=== PATIENT | female | born 1940 | race Caucasian/White ===

== ENCOUNTER → 2016-08-10 | Outpatient (CLI) | payer MEDICARE, BC | LOC: MW.CHORTHO 10:34 | PROVIDERS: ATTEND Physician Assistant | DX: M25.512 Pain in left shoulder (principal); Z53.9 Procedure and treatment not carried out, unspecified reason; M25.511 Pain in right shoulder | CPT/HCPCS: 20610-50; G0463; J3301 ==

== ENCOUNTER 2017-06-14 13:24 | Observation (INO) | payer MEDICARE, BC ==
[2017-06-14] MEDS ORDERED: Azithromycin 250 MG Tab PO ONE (14:39)
[2017-06-14] MEDS ORDERED: Albuterol/Ipratropium 3.0-0.5 MG/3 ML Neb Soln NEB PRN (14:39)
[2017-06-14] MEDS ORDERED: Acetaminophen 325 MG Tab PO PRN (14:39)
[2017-06-14] MEDS ORDERED: Ondansetron 4 MG/2 ML SDV IVPUSH PRN (14:39)
[2017-06-14] MEDS ORDERED: Sodium Chloride 0.9% 1,000 ML IV SCH (14:45)
[2017-06-14] MEDS ORDERED: cefTRIAXone 1 GM in Premix Bag 1 BAG IV SCH (14:45)
--- NOTE | 2017-06-14 14:47 | PCM.HP ---
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 She reports an overall feeling of malaise with some body aches. Green sputum with congested cough, wheezing and dypsnea. She denies chest pain or palpitations. No headaches or sore throat. Some sinus congestion. No abdominal pain or urinary symptoms. She was noted to be sating 88% on RA in the clinic and provider felt she needed to be admitted for observation. From the clinic, labwork essentially WNL, no leukocytosis and BMP WNL Influenza swab negative. No CXR report or images provided so will obtain CXR now. Patient admitted for suspected CAP and mild COPD exacerbation. - Related Data Allergies/Adverse Reactions: Allergies Allergy/AdvReac Type Severity Reaction Status Date / Time propoxyphene HCl Allergy Disorientat Verified 04/06/16 14:25 [From [place]] ion Home Medications: Home Meds DULoxetine [Cymbalta] 1 tab PO DAILY 01/16/14 [History] Pregabalin [Lyrica] 1 tab PO BID 01/16/14 [History] oxyCODONE HCl/Acetaminophen [Percocet 10-325 MG] 1 tab PO Q4HR PRN 01/16/14 [ History] RX: Furosemide [Lasix] 1 tab PO DAILY 04/06/16 [History] RX: Phentermine HCl 1 tab PO DAILY 04/06/16 [History] RX: Propranolol [Inderal LA] 1 tab PO DAILY 04/06/16 [History] Past Medical History HEENT History: Reports: Hard of Hearing Cardiovascular History: Reports: Blood Clots/VTE/DVT (R leg, subsequent compartment syndrome and faciotomy), Hypertension. Denies: CAD, High Cholesterol, OR Respiratory History: Reports: COPD (suspected, has not had PFT yet to be scheduled.) Gastrointestinal History: Reports: None. Denies: GERD, GI Bleed Genitourinary History: Reports: Acute Renal Failure (from dehydration in 2013 and she was transferred to [place].) Neurological History: 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, Neuropathy, Peripheral Psychiatric History: Reports: Depression Endocrine/Metabolic History: Reports: Obesity/BMI 30+. Denies: Diabetes, Type II, Hypothyroidism - Infectious Disease History Infectious Disease History: Reports: Chicken Pox, Measles, Mumps - Past Surgical History Cardiovascular Surgical History: Reports: Other (See Below) Social & Family History - Family History Family Medical History: Noncontributory - Tobacco Use Smoking Status *Q: Former Smoker Years of Tobacco use: 20 Used Tobacco, but Quit: Yes Month Tobacco Last Used: 15 years ago Second Hand Smoke Exposure: No - Caffeine Use Caffeine Use: Reports: Soda - Alcohol Use Days Per Week of Alcohol Use: 0 - Recreational Drug Use Recreational Drug Use: No - Living Situation & Occupation Living situation: Reports: 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 Denies: Fever, Chills HEENT: Reports: Sinus Congestion. Denies: Headaches, Sore Throat, Vertigo, Visual Changes Pulmonary: Reports: Shortness of Breath, Wheezing, Cough, Sputum. Denies: Hemoptysis Cardiovascular: Denies: Chest Pain, Palpitations, Edema Gastrointestinal: Reports: No Symptoms. Denies: Abdominal Pain, Black Stool, Bloody Stool, Nausea, Vomiting Genitourinary: Reports: No Symptoms. Denies: Dysuria, Frequency, Burning, Pain Musculoskeletal: Reports: No Symptoms Skin: Reports: No Symptoms Psychiatric: Reports: No Symptoms Neurological: Reports: No Symptoms Hematologic/Lymphatic: Reports: No Symptoms Immunologic: Reports: No Symptoms Exam - Exam Exam: See Below - Vital Signs Vital Signs: Last Vital Signs Temp 96.5 F 06/14/17 13:45 Pulse 62 06/14/17 13:45 Resp 18 06/14/17 13:45 BP 181/81 H 06/14/17 13:45 Pulse Ox 93 L 06/14/17 13:45 Weight: 89.811 kg - Exam Quality Assessment: No: Supplemental Oxygen General: Alert, Oriented, Cooperative HEENT: Conjunctiva Clear, Mucosa Moist & [place], Posterior Pharynx Clear Neck: Supple, Trachea Midline, 2 Lungs: Normal Respiratory Effort, Rhonchi (throughout), Wheezing (throughout), Other (dark green phlegm noted during interview from coughing) Cardiovascular: Regular Rate, Regular Rhythm, Normal S1, Normal S2. No: Systolic Murmur GI/Abdominal Exam: Normal Bowel Sounds, Soft, Non-Tender, No Organomegaly, No Distention, No Abnormal Bruit, No Mass, Pelvis Stable Extremities: Normal Inspection, Normal Range of Motion, Non-Tender, No Pedal Edema, Normal Capillary Refill Neuro Extensive - Mental Status: Alert, Oriented x3, Normal Mood/Affect, Normal Cognition Neuro Extensive - Motor, Sensory, Reflexes: CN II-XII Intact Psychiatric: Alert, Normal Affect, Normal Mood *Q Meaningful Use (ADM) - VTE *Q VTE Criteria *Q: - Stroke *Q Stroke Criteria *Q: - AMI *Q AMI Criteria *Q: - Problem List (1) Community acquired pneumonia SNOMED Code(s): 408516818 ICD Code: J18.9 - PNEUMONIA, UNSPECIFIED ORGANISM Status: Acute Current Visit: Yes Qualifiers: Laterality: right Lung location: lower lobe of lung Qualified Code(s): J18.1 - Lobar pneumonia, unspecified organism (2) HTN (hypertension) SNOMED Code(s): 75777302 ICD Code: I10 - ESSENTIAL (PRIMARY) HYPERTENSION Status: Chronic Current Visit: Yes Qualifiers: Hypertension type: essential hypertension Qualified Code(s): I10 - Essential (primary) hypertension (3) Hx of deep venous thrombosis SNOMED Code(s): 246600398 ICD Code: Z86.718 - PERSONAL HISTORY OF OTHER VENOUS THROMBOSIS AND EMBOLISM Status: Chronic Current Visit: Yes (4) Hx of fasciotomy SNOMED Code(s): 976251810 ICD Code: Z98.890 - OTHER SPECIFIED POSTPROCEDURAL STATES Status: Chronic Current Visit: Yes (5) Peripheral neuropathy SNOMED Code(s): 328925783 ICD Code: G62.9 - POLYNEUROPATHY, UNSPECIFIED Status: Acute Current Visit : Yes Qualifiers: Peripheral neuropathy type: mononeuropathy, unspecified Qualified Code(s): G58.9 - Mononeuropathy, unspecified (6) Chronic pain SNOMED Code(s): 35622380 ICD Code: G89.29 - OTHER CHRONIC PAIN Status: Chronic Current Visit: Yes Qualifiers: Chronic pain type: due to trauma Qualified Code(s): G89.21 - Chronic pain due to trauma Problem List Initiated/Reviewed/Updated: Yes Orders Last 24hrs: Active Orders 24 hr Category Date Time Status Patient Status [ADT] Routine ADT 06/14/17 14:39 Active Intake and Output [RC] QSHIFT Care 06/14/17 14:40 Active Oxygen Therapy [RC] PRN Care 06/14/17 14:39 Active RT Aerosol Therapy [RC] ASDIRECTED Care 06/14/17 14:43 Active Up ad Gilda [RC] ASDIRECTED Care 06/14/17 14:39 Active VTE/DVT Education [RC] PER UNIT ROUTINE Care 06/14/17 14:39 Active Vital Signs [RC] Q4H Care 06/14/17 14:39 Active Regular Diet [DIET] Diet 06/14/17 Dinner Active BASIC METABOLIC PANEL,BMP [CHEM] AM Lab 06/15/17 05:11 Ordered CBC WITH AUTO DIFF [HEME] AM Lab 06/15/17 05:11 Ordered CULTURE SPUTUM + SMEAR [RM] Stat Lab 06/14/17 14:39 Uncollected Acetaminophen [Tylenol] Med 06/14/17 14:39 Active 650 mg PO Q4H PRN Albuterol/Ipratropium [DuoNeb 3.0-0.5 MG/3 ML] Med 06/14/17 14:39 Active 3 ml NEB Q4HRRT PRN Azithromycin [Zithromax] Med 06/15/17 12:00 Active 250 mg PO Q24H Enoxaparin [Lovenox] Med 06/15/17 09:00 Ordered 30 mg SUBCUT DAILY Ondansetron [Zofran] Med 06/14/17 14:39 Active 4 mg IVPUSH Q4H PRN Sodium Chloride 0.9% [Normal Saline] 1,000 ml Med 06/14/17 14:45 Ordered IV ASDIRECTED cefTRIAXone [Rocephin in Dextrose,Iso-Osm 1 GM/50 ML] 1 Med 06/14/17 14:45 Active gm Premix Bag 1 bag IV Q24H predniSONE Med 06/14/17 14:43 Active 40 mg PO WITHBREAKFAST Saline Lock Insert [OM.PC] Routine Oth 06/14/17 14:39 Ordered Resuscitation Status Routine Resus Stat 06/14/17 14:39 Ordered Medication Orders Acetaminophen (Tylenol) 650 mg PO Q4H PRN PRN Reason: Pain (Mild 1-3)/fever Albuterol/Ipratropium (Duoneb 3.0-0.5 Mg/3 Ml) 3 ml NEB Q4HRRT PRN PRN Reason: Shortness Of Breath/wheezing Azithromycin (Zithromax) 250 mg PO Q24H [facility] Enoxaparin Sodium (Lovenox) 30 mg SUBCUT DAILY [facility] Ceftriaxone Sodium/Dextrose 1 (gm/ Premix) 50 mls @ 100 mls/hr IV Q24H [facility] Sodium Chloride (Normal Saline) 1,000 mls @ 125 mls/hr IV ASDIRECTED [facility] Stop: 06/14/17 22:44 Ondansetron HCl (Zofran) 4 mg IVPUSH Q4H PRN PRN Reason: Nausea Prednisone (Prednisone) 40 mg PO WITHBREAKFAST [facility] Assessment/Plan Comment:: This 77 year old female admitted with suspected CAP and COPD exacerbation 1. CAP: suspected:, but will treat due to clinical findings of dyspnea with productive cough and general malaise. Will treated with Rocephin and Azithromycin. obtain sputum culture and chest xray from clinic shows possible R lower lobe infiltrate. Non toxic appearing, oxygen saturations 93% on RA. 2. suspected COPD: No official diagnosis yet. PFTs are in the works as outpatient. Continue home Symbicort. Add Duonebs PRN and Prednisone 40 mg daily. Was given steroid IM injection prior to leaving clinic. 3. Chronic pain and neuropathy: Secondary to DVT/compartment syndrome and faciotomy to R leg. Continue Lyrica and Oxycodone. VTE prophylaxis: Lovenox. Dispo: Likely discharge in am
[2017-06-14] MEDS: predniSONE 20 MG Tab PO SCH (15:05)
[2017-06-14] MEDS ORDERED: Albuterol 8 GM Inhaler INH PRN (18:35)
[2017-06-14] MEDS: oxyCODONE 5 MG Tab PO SCH ×2 (19:00→22:20)
[2017-06-14] MEDS: Pregabalin 50 MG Cap PO SCH (20:36)
[2017-06-14] MEDS: Pregabalin 200 MG Cap PO SCH (20:36)
[2017-06-15] MEDS: oxyCODONE 5 MG Tab PO SCH ×3 (02:03→09:11)
[2017-06-15 06:25] LABS: CHLORIDE,CL 103 mmol/L (98-110); SODIUM,NA 139 mmol/L (136-146)
[2017-06-15 08:06] VITALS: BP 114/67
--- NOTE | 2017-06-15 08:08 | PCM.DCSUM1 ---
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 She reports an overall feeling of malaise with some body aches. Green sputum with congested cough, wheezing and dypsnea. She denies chest pain or palpitations. No headaches or sore throat. Some sinus congestion. No abdominal pain or urinary symptoms. She was noted to be sating 88 % on RA in the clinic and provider felt she needed to be admitted for observation. From the clinic, labwork essentially WNL, no leukocytosis and BMP WNL Influenza swab negative. No CXR report or images provided so will obtain CXR now. Patient admitted for suspected CAP and mild COPD exacerbation. - Discharge Data Discharge Date: 06/15/17 Discharge Disposition: Home, Self-Care 01 Condition: Good - Discharge Diagnosis/Problem(s) (1) Community acquired pneumonia SNOMED Code(s): 093193797 ICD Code: J18.9 - PNEUMONIA, UNSPECIFIED ORGANISM Status: Acute Qualifiers: Laterality: right Lung location: lower lobe of lung Qualified Code(s): J18.1 - Lobar pneumonia, unspecified organism (2) HTN (hypertension) SNOMED Code(s): 93845168 ICD Code: I10 - ESSENTIAL (PRIMARY) HYPERTENSION Status: Chronic Qualifiers: Hypertension type: essential hypertension Qualified Code(s): I10 - Essential (primary) hypertension (3) Hx of deep venous thrombosis SNOMED Code(s): 172675776 ICD Code: Z86.718 - PERSONAL HISTORY OF OTHER VENOUS THROMBOSIS AND EMBOLISM Status: Chronic (4) Hx of fasciotomy SNOMED Code(s): 412265428 ICD Code: Z98.890 - OTHER SPECIFIED POSTPROCEDURAL STATES Status: Chronic (5) Peripheral neuropathy SNOMED Code(s): 693933668 ICD Code: G62.9 - POLYNEUROPATHY, UNSPECIFIED Status: Acute Qualifiers: Peripheral neuropathy type: mononeuropathy, unspecified Qualified Code(s): G58.9 - Mononeuropathy, unspecified (6) Chronic pain SNOMED Code(s): 72669445 ICD Code: G89.29 - OTHER CHRONIC PAIN Status: Chronic Qualifiers: Chronic pain type: due to trauma Qualified Code(s): G89.21 - Chronic pain due to trauma - Patient Instructions Diet: Heart Healthy Diet Activity: As Tolerated Showering/Bathing: May Shower Notify Provider of: Fever, Increased Pain, Swelling and Redness, Drainage, Nausea and/or Vomiting - Discharge Plan Prescriptions/Med Rec: Azithromycin 500 mg PO DAILY #3 tablet predniSONE [Prednisone] 20 mg PO DAILY #6 tablet Home Medications: Home Meds DULoxetine [Cymbalta] 60 mg PO DAILY 01/16/14 [History] Propranolol [Inderal LA] 60 mg PO DAILY 04/06/16 [History] Albuterol Sulfate [Proair Respiclick] 1 puff IH Q6H PRN 06/14/17 [History] Albuterol [Proventil] 2.5 mg INH Q6H PRN 06/14/17 [History] Ascorbic Acid [C-1000] 3,000 mg PO DAILY 06/14/17 [History] Cholecalciferol (Vitamin D3) [Vitamin D3] 1,000 unit PO DAILY 06/14/17 [History] Lutein/Minerals/Vit A,C & E [Ocuvite] 1 tab PO DAILY 06/14/17 [History] Pregabalin [Lyrica] 300 mg PO BID 06/14/17 [History] Azithromycin 500 mg PO DAILY #3 tablet 06/15/17 [Rx] oxyCODONE HCl/Acetaminophen [Percocet 10-325 mg Tablet] 10 - 325 mg PO Q4H PRN 06/15/17 [History] predniSONE [Prednisone] 20 mg PO DAILY #6 tablet 06/15/17 [Rx] Patient Handouts: Azithromycin tablets, Prednisone tablets, Community-Acquired Pneumonia, Adult, [id number] Referrals: [facility] [Outside] Annamaria Rainey NP [Ordering Only Provider] - 06/21/17 8:00 am - Discharge Summary/Plan Comment DC Time >30 min.: No Discharge Summary/Plan Comment: Discharge Diagnoses: Suspected CAP Mild possible COPD exacerbation HTN Hx DVT with fasciotomy to R leg Chronic pain Peripheral neuropathy Henrietta was admitted and treated with Azithromycin and Rocephin due to possible CAP. Sputum still pending. She was also treated with Prednisone 40 mg daily due to suspected COPD exacerbation. VS and oxygen have been normal since admission, she has not needed any oxygen. She reports she was referred here to have PFT, but has not had yet due to scheduling issues. Today she is feeling much better and is eager for discharge. Lung sounds much more clear today compared to yesterday afternoon. Denies any pain. Cough has improved some. She will be discharged home with 4 more days of Prednisone and Azithromycin. She is to return to ED or clinic if concerns should arise. Follow up with PCP in 1 week. Continue to encourage PFT testing to evaluate lung status. - General Info Date of Service: 06/15/17 Admission Dx/Problem (Free Text: Admission Diagnosis/Problem Admission Diagnosis/Problem Dyspnea Subjective Update: Doing well today, no concerns. No chest pain or SOB. Eager for discharge home this morning. Functional Status: Reports: Pain Controlled, Tolerating Diet, Ambulating, Urinating - Review of Systems General: Reports: No Symptoms. Denies: Fever Pulmonary: Reports: Cough, Sputum (improving, yellow). Denies: Shortness of Breath, Wheezing Cardiovascular: Reports: No Symptoms. Denies: Chest Pain Gastrointestinal: Reports: No Symptoms. Denies: Abdominal Pain, Nausea, Vomiting Genitourinary: Reports: No Symptoms. Denies: Dysuria, Frequency, Burning, Pain Musculoskeletal: Reports: No Symptoms. Denies: Neck Pain Neurological: Reports: No Symptoms. Denies: Confusion Psychiatric: Reports: No Symptoms. Denies: Confusion - Patient Data Vitals - Most Recent: Last Vital Signs Temp 97.6 F 06/15/17 08:00 Pulse 82 06/15/17 08:00 Resp 16 06/15/17 08:00 BP 114/67 06/15/17 08:00 Pulse Ox 93 L 06/15/17 08:00 Weight - Most Recent: 89.811 kg I&O - Last 24 hours: Intake & Output 06/14/17 06/15/17 06/15/17 22:59 06:59 14:59 Intake Total 300 1000 Output Total 0 1250 Balance 300 -250 Lab Results - Last 24 hrs: Laboratory Results - last 24 hr 06/15/17 06/15/17 Range/Units 05:01 05:01 WBC 9.56 (4.0-11.0) K/uL RBC 4.58 (4.30-5.90) M/uL Hgb 13.1 (12.0-16.0) g/dL Hct 39.9 (36.0-46.0) % MCV 87.1 (80.0-98.0) fL MCH 28.6 (27.0-32.0) pg MCHC 32.8 (31.0-37.0) g/dL RDW Std Deviation 42.0 (28.0-62.0) fl RDW Coeff of Hansel 13 (11.0-15.0) % Plt Count 208 (150-400) K/uL MPV 10.90 (7.40-12.00) fL Neut % (Auto) 77.5 (48.0-80.0) % Lymph % (Auto) 21.0 (16.0-40.0) % Lea % (Auto) 1.5 (0.0-15.0) % Eos % (Auto) 0.0 (0.0-7.0) % Baso % (Auto) 0.0 (0.0-1.5) % Neut # (Auto) 7.4 H (1.4-5.7) K/uL Lymph # (Auto) 2.0 (0.6-2.4) K/uL Lea # (Auto) 0.1 (0.0-0.8) K/uL Eos # (Auto) 0.0 (0.0-0.7) K/uL Baso # (Auto) 0.0 (0.0-0.1) K/uL Nucleated RBC % 0.0 /100WBC Nucleated RBCs # 0 K/uL Sodium 139 (136-146) mmol/L Potassium 5.1 (3.5-5.1) mmol/L Chloride 103 (98-110) mmol/L Carbon Dioxide 25 (21-31) mmol/L BUN 17 (6.0-23.0) mg/dL Creatinine 0.8 (0.6-1.5) mg/dL Est Cr Clr Drug Dosing 47.32 mL/min Estimated GFR (MDRD) > 60.0 ml/min Glucose 152 H (60-110) mg/dL Calcium 9.3 (8.8-10.8) mg/dL NAZ Results - Last 24 hrs: Microbiology 06/14/17 17:00 Gram Stain - Preliminary Sputum - Expectorated Med Orders - Current: Current Medications Acetaminophen (Tylenol) 650 mg PO Q4H PRN PRN Reason: Pain (Mild 1-3)/fever Albuterol (Ventolin Hfa) 0 gm INH Q6H PRN PRN Reason: Shortness of Breath Albuterol/Ipratropium (Duoneb 3.0-0.5 Mg/3 Ml) 3 ml NEB Q4HRRT PRN PRN Reason: Shortness Of Breath/wheezing Last Admin: 06/14/17 16:51 Dose: 3 ml Ascorbic Acid (Vitamin C) 3,000 mg PO DAILY [facility] Azithromycin (Zithromax) 500 mg PO Q24H [facility] Cholecalciferol (Vitamin D3) 1,000 units PO DAILY [facility] Duloxetine HCl (Cymbalta) 60 mg PO DAILY [facility] Enoxaparin Sodium (Lovenox) 40 mg SUBCUT DAILY [facility] Ceftriaxone Sodium/Dextrose 1 (gm/ Premix) 50 mls @ 100 mls/hr IV Q24H [facility] Last Admin: 06/14/17 16:05 Dose: 100 mls/hr Multivitamins/Minerals (Prosight) 1 tab PO DAILY [facility] Ondansetron HCl (Zofran) 4 mg IVPUSH Q4H PRN PRN Reason: Nausea Oxycodone HCl (Oxycodone) 10 mg PO Q4H [facility] Last Admin: 06/15/17 06:02 Dose: 10 mg Prednisone (Prednisone) 40 mg PO WITHBREAKFAST [facility] Last Admin: 06/14/17 15:05 Dose: 40 mg Pregabalin (Lyrica) 200 mg PO BID [facility] Last Admin: 06/14/17 20:36 Dose: 200 mg Pregabalin (Lyrica) 100 mg PO BID [facility] Last Admin: 06/14/17 20:36 Dose: 100 mg Propranolol HCl (Inderal La) 60 mg PO DAILY [facility] Discontinued Medications Azithromycin (Zithromax) 500 mg PO Q24H [facility] Stop: 06/14/17 14:40 Last Admin: 06/14/17 15:05 Dose: 500 mg Azithromycin (Zithromax) 250 mg PO Q24H [facility] Sodium Chloride (Normal Saline) 1,000 mls @ 125 mls/hr IV ASDIRECTED [facility] Stop: 06/14/17 22:44 Last Admin: 06/14/17 16:04 Dose: 125 mls/hr - Exam Quality Assessment: Denies: Supplemental Oxygen General: Reports: Alert, Oriented, Cooperative, No Acute Distress Neck: Reports: Supple Lungs: Reports: Clear to Auscultation, Normal Respiratory Effort. Denies: Wheezing Cardiovascular: Reports: Regular Rate, Regular Rhythm, No Murmurs GI/Abdominal Exam: Normal Bowel Sounds, Soft, Non-Tender, No Organomegaly, No Distention, No Abnormal Bruit, No Mass, Pelvis Stable Neurological: Reports: No New Focal Deficit *Q Meaningful Use (DIS) - VTE *Q VTE Criteria *Q: - Stroke *Q Stroke Criteria *Q: - AMI *Q AMI Criteria *Q:
[2017-06-15] MEDS ORDERED: DULoxetine 60 MG Cap PO SCH (09:00)
[2017-06-15] MEDS ORDERED: Beta-Carotene (Vitamin A) w/Vitamin C & E plus Minerals Tab PO SCH (09:00)
[2017-06-15] MEDS ORDERED: Enoxaparin 40 MG/0.4 ML Syringe SUBCUT SCH (09:00)
[2017-06-15] MEDS ORDERED: Cholecalciferol (Vitamin D3) 1,000 Unit Tab PO SCH (09:00)
[2017-06-15] MEDS ORDERED: Propranolol 60 MG Cap.ER PO SCH (09:00)
[2017-06-15] MEDS ORDERED: Ascorbic Acid 500 MG Tab PO SCH (09:00)
[2017-06-15] MEDS: Pregabalin 200 MG Cap PO SCH (09:10)
[2017-06-15] MEDS: Pregabalin 50 MG Cap PO SCH (09:10)
[2017-06-15] MEDS: predniSONE 20 MG Tab PO SCH (09:11)
[2017-06-15] MEDS ORDERED: Azithromycin 250 MG Tab PO SCH ×2 (12:00)
== END 2017-06-15 10:20 | disposition home or self-care (01) ==
LOC: MW.MS 13:24
PROVIDERS: ADMIT Internal Medicine; ATTEND Internal Medicine
DX: J44.0 Chronic obstructive pulmonary disease with (acute) lower respiratory infection (principal); J18.1 Lobar pneumonia, unspecified organism; J44.1 Chronic obstructive pulmonary disease with (acute) exacerbation; I10 Essential (primary) hypertension; G58.9 Mononeuropathy, unspecified; G89.21 Chronic pain due to trauma; E66.9 Obesity, unspecified; Z86.718 Personal history of other venous thrombosis and embolism; Z98.890 Other specified postprocedural states; Z79.899 Other long term (current) drug therapy; Z88.5 Allergy status to narcotic agent; Z68.30 Body mass index [BMI] 30.0-30.9, adult; Z87.891 Personal history of nicotine dependence
CPT/HCPCS: 36415; 80048; 85025; 87070; 87205; 94640; A9270; J0696; J1650; J7040; 96365; 96372; G0378; G0379

== ENCOUNTER 2017-09-29 05:33 | Emergency (ER) | payer MEDICARE, BC ==
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
[2017-09-29 08:27] VITALS: BP 135/57
--- NOTE | 2017-10-01 10:31 | CR ---
EXAM DATE: 09/29/17 PATIENT'S AGE: 77 Patient: ORTEGA PALACIO Facility: [place], [place] Site . Site : 1940 Study: XRay Extremity Right ANKLE [id number]/19/2018 7:02:30 AM Ordering Physician: Izabella Holder Final Report: INDICATION: Ankle pain TECHNIQUE: Ankle radiograph 3 views right COMPARISON: None FINDINGS: Bones: Alignment is normal. No acute fractures or aggressive osseous lesions seen. Joint spaces: The visualized tibiotalar, subtalar, and midfoot joints are unremarkable in appearance. No joint effusion is seen. Soft tissues: Overlying fabric artifacts moderately limits the evaluation of the soft tissues. The Kager fat pad is normal in appearance. The Achilles` tendon is normal in appearance. No radiopaque foreign bodies are noted. IMPRESSION: 1. No acute osseous injuries are identified. Dictated by Jose Martinez MD @ 09/29/2017 7:03:37 AM Dictated by: Jose Martinez MD @ 09/29/2017 07:03:47 (Electronic Signature) Report Signed by Proxy. [facility]
--- NOTE | 2017-10-01 10:32 | CR ---
EXAM DATE: 09/29/17 PATIENT'S AGE: 77 Patient: ORTEGA PALACIO Facility: [place], [place] Site . Site : 1940 Study: XRay Extremity RIGHT FOOT [id number]/19/2018 7:03:03 AM Ordering Physician: Izabella Holder Final Report: INDICATION: Pain after fall. COMPARISON: None. TECHNIQUE: Three views right foot. IMPRESSION: Type 2 accessory navicular. No degenerative or inflammatory change in the mid or forefoot. No acute fracture. Soft tissues radiographically unremarkable. 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 Dictated by Ander Ramos MD @ Sep 29 2017 7:05AM (Electronic Signature) Report Signed by Proxy. ROXANA
--- NOTE | 2017-10-01 10:33 | CR ---
EXAM DATE: 09/29/17 PATIENT'S AGE: 77 Patient: OTREGA PALACIO Facility: [place], [place] Site . Site : 1940 Study: XRay Pelvis [id number]/19/2018 7:03:22 AM Ordering Physician: Izabella Holder Final Report: INDICATION: Pain after fall. TECHNIQUE: One view pelvis. IMPRESSION: Body habitus causes poor image quality. Right-side marker is on the typical left side of the image. This is either inaccurately marked or a reversed image. Based on the marker there is a right hip prosthesis and mild osteoarthritis of the left hip. No acute fracture or bone lesion appreciated. Dictated by Ander Ramos MD @ Sep 29 2017 7:05AM (Electronic Signature) Report Signed by Proxy. ROXANA
--- NOTE | 2017-10-01 10:34 | CT ---
EXAM DATE: 09/29/17 PATIENT'S AGE: 77 Patient: ORTEGA PALACIO Facility: [place], [place] Site . Site : 1940 Study: CT Head [id number]/19/2018 7:09:51 AM Ordering Physician: Doctor Rivas Final Report: INDICATION: Fall. Two previous intraparenchymal hemorrhages.. TECHNIQUE: CT Head without contrast. COMPARISON: [address] FINDINGS: CSF spaces: Within normal limits for age. Brain parenchyma: The harrell-white differentiation is normal. No sign of mass, hemorrhage, or midline shift. Skull base and calvarium: The visualized paranasal sinuses and mastoid air cells are clear. The visualized orbits are grossly unremarkable. No skull fractures. Right parietal craniotomy gerardo holes.. IMPRESSION: No significant change with no acute finding. Please note that all CT scans at this facility use dose modulation, iterative reconstruction, and/or weight-based dosing when appropriate to reduce radiation dose to as low as reasonably achievable. Dictated by Ander Ramos MD @ Sep 29 2017 7:17AM (Electronic Signature) Report Signed by Proxy. [facility]
--- NOTE | 2017-10-01 10:35 | CT ---
EXAM DATE: 09/29/17 PATIENT'S AGE: 77 Patient: ORTEGA PALACIO Facility: [place], [place] Site . Site : 1940 Study: CT Spine Cervical [id number]/19/2018 7:10:15 AM Ordering Physician: Doctor Rivas Final Report: INDICATION: Fall. TECHNIQUE: Multi detector noncontrast images cervical spine with axial, coronal and sagittal reformats. FINDINGS: No acute fracture. Straightened cervical lordosis. Mild diffuse degenerative disk height loss with small osteophytes most pronounced C5-6 and C6-C7. No bony encroachment of central canal or neural foramen. Mild facet arthrosis mid to upper cervical spine. Prevertebral soft tissues are normal. Visualized lung apices are clear. IMPRESSION: No acute fracture or traumatic malalignment. Mild degenerative disk and facet changes. Please note that all CT scans at this facility use dose modulation, iterative reconstruction, and/or weight-based dosing when appropriate to reduce radiation dose to as low as reasonably achievable. Dictated by Ander Ramos MD @ Sep 29 2017 7:24AM (Electronic Signature) Report Signed by Proxy. [facility]
== END 2017-09-29 08:24 | disposition home or self-care (01) ==
LOC: MW.ED 05:33
DX: S90.31XA Contusion of right foot, initial encounter (principal); S90.01XA Contusion of right ankle, initial encounter; W06.XXXA Fall from bed, initial encounter; J44.9 Chronic obstructive pulmonary disease, unspecified; E66.9 Obesity, unspecified; F32.9 Major depressive disorder, single episode, unspecified; Z79.899 Other long term (current) drug therapy; Z88.6 Allergy status to analgesic agent; Z88.8 Allergy status to other drugs, medicaments and biological substances; Z68.34 Body mass index [BMI] 34.0-34.9, adult
CPT/HCPCS: 70450; 70450-26; 72125; 72125-26; 72170; 72170-26; 73610-26-RT; 73610-RT; 73630-26-RT; 73630-RT; 99283; 99284-25

== ENCOUNTER 2017-11-08 16:21 | Emergency (ER) | payer MEDICARE, BC ==
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
[2017-11-08 19:04] VITALS: BP 143/74
--- NOTE | 2017-11-09 15:08 | US ---
EXAM DATE: 11/08/17 PATIENT'S AGE: 77 Patient: ORTEGA PALACIO Facility: [place], [place] Site . Site : 1940 Study: US Extremity [id number]/28/2018 6:02:12 PM Ordering Physician: Chase Aguilera Final Report: INDICATION: Right lower extremity pain and swelling. Recent fasciotomy. COMPARISON: None. TECHNIQUE: A compression venous ultrasound exam was performed of the right lower extremity using harrell scale imaging, color Doppler and spectral Doppler analysis. FINDINGS: Sonographic imaging of the right lower extremity demonstrates normal compressibility and color Doppler venous blood flow within the common femoral vein, deep femoral vein, and the proximal greater saphenous vein. Within the thigh, the femoral vein is patent and compressible. At a lower level, the popliteal vein also shows normal compressibility and color Doppler venous blood flow. The posterior tibial veins are not well seen due to postsurgical change from a fasciotomy. 1.6 x 1.6 x 3.[address]`s cyst. Limited imaging of the contralateral groin demonstrates a normal spectral waveform and color Doppler venous blood flow within the left common femoral vein. IMPRESSION: Normal venous ultrasound exam. No evidence of deep vein thrombosis within the right lower extremity. The posterior tibial veins are not well seen. 3.[address]`s cyst. Dictated by Michelet Ramírez MD @ Nov 08 2017 6:28PM (Electronic Signature) Report Signed by Proxy. ROXANA
== END 2017-11-08 18:50 | disposition home or self-care (01) ==
LOC: MW.ED 16:21
DX: M71.21 Synovial cyst of popliteal space [Baker], right knee (principal); Z88.6 Allergy status to analgesic agent; Z88.8 Allergy status to other drugs, medicaments and biological substances; Z79.899 Other long term (current) drug therapy
CPT/HCPCS: 93971-26-RT; 93971-RT; 99283; 99283-25

== ENCOUNTER 2017-11-25 18:28 | Emergency (ER) | payer MEDICARE, BC ==
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
[2017-11-25] MEDS ORDERED: Ketorolac 60 MG/2 ML SDV IM ONE (20:13)
[2017-11-25 20:56] VITALS: BP 150/69
--- NOTE | 2017-11-26 17:53 | CR ---
EXAM DATE: 11/25/17 PATIENT'S AGE: 77 Patient: ORTEGA PALACIO Facility: [place], [place] Site . Site : 1940 Study: XRay Extremity Left elbow [id number]/15/2018 7:39:12 PM Ordering Physician: Vito Pérez Final Report: Indication: Fall Technique: Left elbow two views. Comparison: None Findings: No evidence of acute fracture or dislocation. Mild to moderate degenerative changes of the elbow. No additional osseous abnormality. No evidence of joint effusion or radiopaque foreign body. Impression: No acute osseous abnormality. Dictated by Jacob Wright MD @ 11/25/2017 8:13:53 PM Dictated by: Jacob Wright MD @ 11/25/2017 20:14:39 (Electronic Signature) Report Signed by Proxy. [facility]PITALReese
--- NOTE | 2017-11-26 17:54 | CR ---
EXAM DATE: 11/25/17 PATIENT'S AGE: 77 Patient: ORTEGA PALACIO Facility: [place], [place] Site . Site : 1940 Study: XRay Pelvis [id number]/15/2018 7:39:41 PM Ordering Physician: Vito Pérez Final Report: HISTORY: Pelvic pain. COMPARISON: None. FINDINGS: Single frontal view of the pelvis. Left hip arthroplasty appears intact. No evidence for acute fracture or dislocation. Soft tissues are within normal. Mild degenerative changes in the right hip. Dictated by Kiera Song MD @ Nov 25 2017 8:13PM (Electronic Signature) Report Signed by Proxy. ROXANA
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
== END 2017-11-25 20:52 | disposition home or self-care (01) ==
LOC: MW.ED 18:28
DX: S00.83XA Contusion of other part of head, initial encounter (principal); S80.12XA Contusion of left lower leg, initial encounter; S09.90XA Unspecified injury of head, initial encounter; S80.211A Abrasion, right knee, initial encounter; S50.812A Abrasion of left forearm, initial encounter; I10 Essential (primary) hypertension; J44.9 Chronic obstructive pulmonary disease, unspecified; Z87.891 Personal history of nicotine dependence; Z88.6 Allergy status to analgesic agent; Z88.8 Allergy status to other drugs, medicaments and biological substances; Z79.899 Other long term (current) drug therapy; W10.9XXA Fall (on) (from) unspecified stairs and steps, initial encounter
CPT/HCPCS: 70450; 72170; 73070; 96372; 99284; J1885

== ENCOUNTER 2018-09-13 11:08 | Inpatient (IN) | payer MEDICARE, BC ==
[2018-09-13] MEDS ORDERED: Acetaminophen 500 MG Tab PO ONE (11:27)
[2018-09-13] MEDS ORDERED: Sodium Chloride 0.9% 1,000 ML IV ONE (11:28)
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
[2018-09-13] MEDS ORDERED: Albuterol/Ipratropium 3.0-0.5 MG/3 ML Neb Soln NEB ONE (11:57)
--- NOTE | 2018-09-13 12:10 | CR ---
EXAMINATION: Portable chest radiograph. HISTORY: Shortness of breath. FINDINGS: The trachea is midline. The cardiomediastinal silhouette is within normal limits. No pulmonary infiltrates, effusions or pneumothorax. Mild left basilar atelectasis. Osseous structures appear unremarkable. IMPRESSION: No acute cardiopulmonary process.
--- NOTE | 2018-09-13 12:59 | CT ---
EXAMINATION: Non contrast CT head. Coronal and sagittal reformats. HISTORY: Pain FINDINGS: No evidence of intra or extra axial hemorrhage, mass, midline shift, hydrocephalus or edema. No hypoattenuation changes in the major vascular territories to suggest acute infarct. No abnormal intracranial calcifications are detected. No evidence of substantial vascular calcifications. Paranasal sinuses and mastoid air cells are well aerated without substantial findings. Pituitary fossa appears unremarkable. Orbits and globes are symmetric. 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 No evidence of skull fracture. Advanced degenerative changes within the temporomandibular joints. IMPRESSION: No acute intracranial findings.
[2018-09-13] MEDS ORDERED: cefTRIAXone 1 GM in Premix Bag 1 BAG IV ONE (13:05)
[2018-09-13] MEDS ORDERED: Ondansetron 4 MG/2 ML SDV IVPUSH PRN (13:55)
[2018-09-13] MEDS ORDERED: Albuterol/Ipratropium 3.0-0.5 MG/3 ML Neb Soln NEB PRN (13:55)
[2018-09-13] MEDS ORDERED: Albuterol 8 GM Inhaler INH PRN (14:57)
[2018-09-13] MEDS ORDERED: Albuterol 0.083% 2.5 MG/3 ML Neb Soln INH PRN (14:57)
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
[2018-09-13] MEDS: Acetaminophen 325 MG Tab PO PRN (17:01)
[2018-09-13] MEDS: Sodium Chloride 0.9% 1,000 ML IV SCH (17:05)
--- NOTE | 2018-09-13 19:27 | CT ---
INDICATION: Back pain. COMPARISON: None available. TECHNIQUE: Non-contrast CT of the abdomen. FINDINGS: No hydronephrosis and no renal calculi. No stones seen in the visualized portions of the ureter on either side. Small cyst in the upper pole the right kidney. There is status post cholecystectomy. Diffuse hepatic steatosis. The spleen is normal size. No ascites in the upper abdomen. Atherosclerotic change without abdominal aortic aneurysm. Retrievable infrarenal IVC filter. Notably one of the struts (the most anterior and outer) is fractured, and is seen extending slightly cephalad in relation to the other struts. It likely has not migrated any further yet since a portion may be imbedded into the wall. In the visualized portions of the lung bases there is no definite filter fragment within the heart. No other definite pieces are missing. No pancreatitis. The visualized bowel is nonobstructed. There is a prominent posterior disc osteophyte complex at T11-T12 which causes mild spinal canal stenosis. At L4-5 there is grade 1 anterolisthesis and severe spinal canal stenosis. Probable hemangioma in the L5 vertebral body (of note there is transitional anatomy, and I am counting the vertebral body with hypoplastic ribs in the upper lumbar spine to be L1). No pleural effusions are seen in the lung bases. Multiple linear opacities in the lower lobes likely represent subsegmental areas of atelectasis. IMPRESSION: 1. No renal calculi, and no hydronephrosis. 2. Fractured IVC filter strut is present, which has not yet migrated, which may be due to the strut being imbedded in the anterior wall. This patient should be referred to interventional Radiology for removal of the IVC filter and the fractured strut. No filter strut within the visualized portions of the heart and no other definite pieces are missing. Strut penetration is seen involving multiple of the struts and one is indenting into the D3 segment of the duodenum. 3. Diffuse hepatic steatosis. 4. Multilevel degenerative change in the lumbar spine most notable for severe spinal canal stenosis at L4-5. Please note that all CT scans at this facility use dose modulation, iterative reconstruction, and/or weight-based dosing when appropriate to reduce radiation dose to as low as reasonably achievable. Dictated by Bert Rodriguez MD @ Sep 13 2018 7:05PM (Electronically Signed)
[2018-09-13] MEDS: Acetaminophen/oxyCODONE 325-10 MG Tab PO PRN (20:47)
[2018-09-13] MEDS: Pregabalin 75 MG Cap PO SCH (20:49)
[2018-09-14] MEDS: Acetaminophen/oxyCODONE 325-10 MG Tab PO PRN ×5 (00:55→23:57)
[2018-09-14] MEDS: Sodium Chloride 0.9% 1,000 ML IV SCH ×2 (03:10→13:49)
[2018-09-14 06:33] LABS: CHLORIDE,CL 103 mmol/L (98-107); SODIUM,NA 137 mmol/L (136-145)
[2018-09-14] MEDS ORDERED: Meropenem 1 GM in Sodium Chloride 0.9% 100 ML IV SCH ×3 (07:00→20:00)
[2018-09-14] MEDS ORDERED: Meropenem 1 GM SDV ONE (07:30)
[2018-09-14] MEDS ORDERED: Sodium Chloride 0.9% 100 ML ONE (07:32)
--- NOTE | 2018-09-14 09:25 | PCM.PN ---
- General Info Date of Service: 09/14/18 Admission Dx/Problem (Free Text): Admission Diagnosis/Problem Admission Diagnosis/Problem Fever, confusion, shortness of breath Subjective Update: The patient is a 78-year-old lady who had presented to the emergency department with fever, chills and confusion and was admitted to acute hospitalization yesterday. She does have a history of DVT along with hypertension and COPD. Patient says that she is concerned that her right leg is red and this is set concern for she does have a history of fasciotomy secondary to blood clots. The patient today says that she is doing much better. His for her cough. She does have some congestion. The patient had a CT scan completed yesterday. Functional Status: Reports: Pain Controlled - Review of Systems General: Reports: No Symptoms HEENT: Reports: No Symptoms Pulmonary: Reports: No Symptoms Cardiovascular: Reports: No Symptoms Gastrointestinal: Reports: No Symptoms Genitourinary: Reports: No Symptoms Musculoskeletal: Reports: No Symptoms Skin: Reports: Rash, Other (Right leg) Neurological: Reports: No Symptoms Psychiatric: Reports: No Symptoms - Patient Data Vitals - Most Recent: Last Vital Signs Temp 36.3 C 09/14/18 08:00 Pulse 60 09/14/18 08:00 Resp 19 09/14/18 08:00 BP 101/55 L 09/14/18 08:00 Pulse Ox 92 L 09/14/18 08:00 Weight - Most Recent: 81.647 kg I&O - Last 24 Hours: Intake & Output 09/13/18 09/14/18 09/14/18 22:59 06:59 14:59 Intake Total 1190 Output Total 400 700 Balance -400 490 Lab Results Last 24 Hours: Laboratory Results - last 24 hr 09/13/18 09/13/18 09/13/18 Range/Units 11:30 11:30 11:30 WBC 13.21 H (4.0-11.0) K/uL RBC 5.10 (4.30-5.90) M/uL Hgb 14.4 (12.0-16.0) g/dL Hct 44.2 (36.0-46.0) % MCV 86.7 (80.0-98.0) fL MCH 28.2 (27.0-32.0) pg MCHC 32.6 (31.0-37.0) g/dL RDW Std Deviation 45.0 (28.0-62.0) fl RDW Coeff of Hansel 14 (11.0-15.0) % Plt Count 120 L (150-400) K/uL MPV 11.70 (7.40-12.00) fL Neut % (Auto) 87.8 H (48.0-80.0) % Lymph % (Auto) 7.3 L (16.0-40.0) % [place] % (Auto) 4.6 (0.0-15.0) % Eos % (Auto) 0.1 (0.0-7.0) % Baso % (Auto) 0.2 (0.0-1.5) % Neut # (Auto) 11.6 H (1.4-5.7) K/uL Lymph # (Auto) 1.0 (0.6-2.4) K/uL [place]gs # (Auto) 0.6 (0.0-0.8) K/uL Eos # (Auto) 0.0 (0.0-0.7) K/uL Baso # (Auto) 0.0 (0.0-0.1) K/uL Nucleated RBC % 0.0 /100WBC Nucleated RBCs # 0 K/uL ABG Carboxyhemoglobin 2.5 (0-15) % Lactate (0.20-2.00) mmol/L Sodium 135 L (136-145) mmol/L Potassium 3.7 (3.5-5.1) mmol/L Chloride 97 L (98-107) mmol/L Carbon Dioxide 26.6 (21.0-32.0) mmol/L BUN 18 (7.0-18.0) mg/dL Creatinine 1.0 (0.6-1.0) mg/dL Est Cr Clr Drug Dosing 38.97 mL/min Estimated GFR (MDRD) 53.8 ml/min Glucose 140 H (74-106) mg/dL Calcium 9.1 (8.5-10.1) mg/dL Total Bilirubin 1.2 H (0.2-1.0) mg/dL AST 22 (15-37) IU/L ALT 22 (14-63) IU/L Alkaline Phosphatase 64 (46-116) U/L Total Protein 7.9 (6.4-8.2) g/dL Albumin 4.1 (3.4-5.0) g/dL Globulin 3.8 (2.6-4.0) g/dL Albumin/Globulin Ratio 1.1 (0.9-1.6) Urine Color Urine Appearance Urine pH (5.0-8.0) Ur Specific [place] (1.001-1.035) Urine Protein (NEGATIVE) mg/dL Urine Glucose (UA) (NEGATIVE) mg/dL Urine Ketones (NEGATIVE) mg/dL Urine Occult Blood (NEGATIVE) Urine Nitrite (NEGATIVE) Urine Bilirubin (NEGATIVE) Urine Urobilinogen (<2.0) EU/dL Ur Leukocyte Esterase (NEGATIVE) Urine RBC (0-2/HPF) Urine WBC (0-5/HPF) Ur Epithelial Cells (NONE-FEW) Urine Bacteria (NEGATIVE) 09/13/18 09/13/18 09/14/18 Range/Units 11:30 12:44 06:06 WBC 10.10 (4.0-11.0) K/uL RBC 4.08 L (4.30-5.90) M/uL Hgb 11.5 L (12.0-16.0) g/dL Hct 35.6 L (36.0-46.0) % MCV 87.3 (80.0-98.0) fL MCH 28.2 (27.0-32.0) pg MCHC 32.3 (31.0-37.0) g/dL RDW Std Deviation 46.2 (28.0-62.0) fl RDW Coeff of Hansel 14 (11.0-15.0) % Plt Count 94 L (150-400) K/uL MPV 11.50 (7.40-12.00) fL Neut % (Auto) 81.2 H (48.0-80.0) % Lymph % (Auto) 14.1 L (16.0-40.0) % [place]gs % (Auto) 4.2 (0.0-15.0) % Eos % (Auto) 0.3 (0.0-7.0) % Baso % (Auto) 0.2 (0.0-1.5) % Neut # (Auto) 8.2 H (1.4-5.7) K/uL Lymph # (Auto) 1.4 (0.6-2.4) K/uL [place]gs # (Auto) 0.4 (0.0-0.8) K/uL Eos # (Auto) 0.0 (0.0-0.7) K/uL Baso # (Auto) 0.0 (0.0-0.1) K/uL Nucleated RBC % 0.0 /100WBC Nucleated RBCs # 0 K/uL ABG Carboxyhemoglobin (0-15) % Lactate 1.1 (0.20-2.00) mmol/L Sodium (136-145) mmol/L Potassium (3.5-5.1) mmol/L Chloride (98-107) mmol/L Carbon Dioxide (21.0-32.0) mmol/L BUN (7.0-18.0) mg/dL Creatinine (0.6-1.0) mg/dL Est Cr Clr Drug Dosing mL/min Estimated GFR (MDRD) ml/min Glucose (74-106) mg/dL Calcium (8.5-10.1) mg/dL Total Bilirubin (0.2-1.0) mg/dL AST (15-37) IU/L ALT (14-63) IU/L Alkaline Phosphatase (46-116) U/L Total Protein (6.4-8.2) g/dL Albumin (3.4-5.0) g/dL Globulin (2.6-4.0) g/dL Albumin/Globulin Ratio (0.9-1.6) Urine Color YELLOW Urine Appearance CLEAR Urine pH 7.0 (5.0-8.0) Ur Specific [place] 1.010 (1.001-1.035) Urine Protein NEGATIVE (NEGATIVE) mg/dL Urine Glucose (UA) NEGATIVE (NEGATIVE) mg/dL Urine Ketones NEGATIVE (NEGATIVE) mg/dL Urine Occult Blood TRACE-INTACT H (NEGATIVE) Urine Nitrite NEGATIVE (NEGATIVE) Urine Bilirubin NEGATIVE (NEGATIVE) Urine Urobilinogen 1.0 (<2.0) EU/dL Ur Leukocyte Esterase NEGATIVE (NEGATIVE) Urine RBC 0-3 (0-2/HPF) Urine WBC 0-3 (0-5/HPF) Ur Epithelial Cells RARE (NONE-FEW) Urine Bacteria NOT SEEN (NEGATIVE) 09/14/18 Range/Units 06:06 WBC (4.0-11.0) K/uL RBC (4.30-5.90) M/uL Hgb (12.0-16.0) g/dL Hct (36.0-46.0) % MCV (80.0-98.0) fL MCH (27.0-32.0) pg MCHC (31.0-37.0) g/dL RDW Std Deviation (28.0-62.0) fl RDW Coeff of Hansel (11.0-15.0) % Plt Count (150-400) K/uL MPV (7.40-12.00) fL Neut % (Auto) (48.0-80.0) % Lymph % (Auto) (16.0-40.0) % Griggs % (Auto) (0.0-15.0) % Eos % (Auto) (0.0-7.0) % Baso % (Auto) (0.0-1.5) % Neut # (Auto) (1.4-5.7) K/uL Lymph # (Auto) (0.6-2.4) K/uL [place]gs # (Auto) (0.0-0.8) K/uL Eos # (Auto) (0.0-0.7) K/uL Baso # (Auto) (0.0-0.1) K/uL Nucleated RBC % /100WBC Nucleated RBCs # K/uL ABG Carboxyhemoglobin (0-15) % Lactate (0.20-2.00) mmol/L Sodium 137 (136-145) mmol/L Potassium 3.2 L (3.5-5.1) mmol/L Chloride 103 (98-107) mmol/L Carbon Dioxide 27.7 (21.0-32.0) mmol/L BUN 17 (7.0-18.0) mg/dL Creatinine 0.9 (0.6-1.0) mg/dL Est Cr Clr Drug Dosing 44.25 mL/min Estimated GFR (MDRD) > 60.0 ml/min Glucose 134 H (74-106) mg/dL Calcium 8.0 L (8.5-10.1) mg/dL Total Bilirubin (0.2-1.0) mg/dL AST (15-37) IU/L ALT (14-63) IU/L Alkaline Phosphatase (46-116) U/L Total Protein (6.4-8.2) g/dL Albumin (3.4-5.0) g/dL Globulin (2.6-4.0) g/dL Albumin/Globulin Ratio (0.9-1.6) Urine Color Urine Appearance Urine pH (5.0-8.0) Ur Specific [place] (1.001-1.035) Urine Protein (NEGATIVE) mg/dL Urine Glucose (UA) (NEGATIVE) mg/dL Urine Ketones (NEGATIVE) mg/dL Urine Occult Blood (NEGATIVE) Urine Nitrite (NEGATIVE) Urine Bilirubin (NEGATIVE) Urine Urobilinogen (<2.0) EU/dL Ur Leukocyte Esterase (NEGATIVE) Urine RBC (0-2/HPF) Urine WBC (0-5/HPF) Ur Epithelial Cells (NONE-FEW) Urine Bacteria (NEGATIVE) Andrei Results Last 24 Hours: Microbiology 09/13/18 12:36 Aerobic Blood Culture - Preliminary Blood - Venous - Lab Draw Anaerobic Blood Culture - Preliminary 09/13/18 11:30 Aerobic Blood Culture - Preliminary Blood - Venous Anaerobic Blood Culture - Preliminary 09/13/18 11:15 Influenza Type A Antigen Screen - Final Nasopharyngeal Swab NEGATIVE INFLUENZA A VIRUS AG REFERENCE RANGE: NEGATIVE Influenza Type B Antigen Screen - Final NEGATIVE INFLUENZA B VIRUS AG REFERENCE RANGE: NEGATIVE Med Orders - Current: Current Medications Acetaminophen (Tylenol) 650 mg PO Q4H PRN PRN Reason: Fever Last Admin: 09/13/18 17:01 Dose: 650 mg Albuterol (Proventil Neb Soln) 2.5 mg INH Q6HRRT PRN PRN Reason: Wheezing Albuterol (Ventolin Hfa) 1 gm INH Q6HRRT PRN PRN Reason: Shortness of Breath Albuterol/Ipratropium (Duoneb 3.0-0.5 Mg/3 Ml) 3 ml NEB Q4HRRT PRN PRN Reason: Shortness Of Breath/wheezing Sodium Chloride (Normal Saline) 1,000 mls @ 100 mls/hr IV ASDIRECTED [place] Last Admin: 09/14/18 03:10 Dose: 100 mls/hr Meropenem 1 gm/ Sodium (Chloride) 100 mls @ 200 mls/hr IV Q12H [place] Ondansetron HCl (Zofran) 4 mg IVPUSH Q4H PRN PRN Reason: Nausea Last Admin: 09/13/18 16:03 Dose: 4 mg Oxycodone/Acetaminophen (Percocet 325-10 Mg) 1 tab PO Q4H PRN PRN Reason: Pain Last Admin: 09/14/18 00:55 Dose: 1 tab Fluticasone/ (Vilanterol 1 Inh) 1 each INH DAILY [facility] Pregabalin (Lyrica) 300 mg PO BID [facility] Last Admin: 09/13/18 20:49 Dose: 300 mg Propranolol HCl (Inderal La) 60 mg PO DAILY [facility] Discontinued Medications Acetaminophen (Tylenol Extra Strength) 1,000 mg PO ONETIME ONE Stop: 09/13/18 11:28 Last Admin: 09/13/18 11:41 Dose: 1,000 mg Albuterol/Ipratropium (Duoneb 3.0-0.5 Mg/3 Ml) 3 ml NEB ONETIME ONE Stop: 09/13/18 11:58 Last Admin: 09/13/18 12:06 Dose: 3 ml Sodium Chloride (Normal Saline) 1,000 mls @ 999 mls/hr IV STAT ONE Stop: 09/13/18 12:28 Last Admin: 09/13/18 11:46 Dose: 999 mls/hr Ceftriaxone Sodium/Dextrose 1 (gm/ Premix) 50 mls @ 100 mls/hr IV ONETIME ONE Stop: 09/13/18 13:34 Last Admin: 09/13/18 13:28 Dose: 100 mls/hr Ceftriaxone Sodium/Dextrose 1 (gm/ Premix) 50 mls @ 100 mls/hr IV Q24H [facility] Meropenem 1 gm/ Sodium (Chloride) 100 mls @ 200 mls/hr IV Q8H [place] Stop: 09/14/18 09:00 Last Admin: 09/14/18 07:43 Dose: 200 mls/hr Sodium Chloride (Normal Saline) Confirm Administered Dose 100 mls @ as directed .ROUTE .STK-MED ONE Stop: 09/14/18 07:33 Last Admin: 09/14/18 08:00 Dose: Not Given Meropenem 1 gm/ Sodium (Chloride) 100 mls @ 200 mls/hr IV Q8H [facility] Meropenem (Merrem) Confirm Administered Dose 1 gm .ROUTE .STK-MED ONE Stop: 09/14/18 07:31 Last Admin: 09/14/18 08:00 Dose: Not Given - Exam Quality Assessment: No: Supplemental Oxygen General: Alert, Oriented, Cooperative, No Acute Distress HEENT: Pupils Equal, Pupils Reactive, EOMI, Mucous Membr. Moist/[place] Neck: Supple, Trachea Midline Lungs: Clear to Auscultation, Normal Respiratory Effort Cardiovascular: Regular Rate, Regular Rhythm GI/Abdominal Exam: Normal Bowel Sounds, Soft, Non-Tender, No Distention (Female) Exam: Deferred Back Exam: Normal Inspection, Full Range of Motion Extremities: Normal Inspection, Normal Range of Motion, No Pedal Edema Skin: Warm, Dry, Intact, Other (Area of erythema to right lower leg near areas of her previous fasciotomy) Neurological: No New Focal Deficit Psy/Mental Status: Alert, Normal Affect, Normal Mood - Problem List & Annotations (1) Gram-positive bacteremia SNOMED Code(s): 129549158296 Code(s): R78.81 - BACTEREMIA Status: Acute Priority: High Current Visit : Yes (2) Fever SNOMED Code(s): 118829931 Code(s): R50.9 - FEVER, UNSPECIFIED Status: Acute Current Visit: Yes Qualifiers: Fever type: unspecified Qualified Code(s): R50.9 - Fever, unspecified (3) Presence of IVC filter SNOMED Code(s): 159176624026425, 779925404180072 Code(s): Z95.828 - PRESENCE OF OTHER VASCULAR IMPLANTS AND GRAFTS Status: Chronic Priority: Medium Current Visit: Yes (4) Leukocytosis SNOMED Code(s): 683404449, 014814560 Code(s): D72.829 - ELEVATED WHITE BLOOD CELL COUNT, UNSPECIFIED Status: Acute Priority: High Current Visit: Yes Qualifiers: Leukocytosis type: unspecified Qualified Code(s): D72.829 - Elevated white blood cell count, unspecified (5) HTN (hypertension) SNOMED Code(s): 67423310 Code(s): I10 - ESSENTIAL (PRIMARY) HYPERTENSION Status: Chronic Priority : High Current Visit: Yes Qualifiers: Hypertension type: essential hypertension Qualified Code(s): I10 - Essential (primary) hypertension (6) Hx of deep venous thrombosis SNOMED Code(s): 544596198 Code(s): Z86.718 - PERSONAL HISTORY OF OTHER VENOUS THROMBOSIS AND EMBOLISM Status: Chronic Priority: Medium Current Visit: Yes - Problem List Review Problem List Initiated/Reviewed/Updated: Yes - My Orders Last 24 Hours: My Active Orders 09/13/18 14:57 Albuterol [Proventil Neb Soln] 2.5 mg INH Q6HRRT PRN Albuterol [Ventolin HFA] 1 gm INH Q6HRRT PRN 09/13/18 20:21 Acetaminophen/oxyCODONE [Percocet 325-10 MG] 1 tab PO Q4H PRN 09/13/18 21:00 Pregabalin [Lyrica] 300 mg PO BID 09/14/18 09:00 Patient's Own Medication [Ptom] 1 each INH DAILY Propranolol [Inderal LA] 60 mg PO DAILY 09/14/18 20:00 Meropenem [Merrem] 1 gm Sodium Chloride 0.9% [Normal Saline] 100 ml IV Q12H 09/14/18 Breakfast Regular Diet [DIET] - Plan Plan:: This 78 year old female admitted with fever, leukocytosis and confusion, which has already cleared. 1. Fever, leukocytosis: Abdominal pain noted on exam, will order CT to further evaluate. NPO for now. IVFs NS at 100. BC and UC pending. Continue Antibiotics upon CT scan results. 2. COPD: Stable, Continue inhalers. Duonebs PRN. 3. HTN: Stable, continue Propranolol. 4. Chronic pain: Continue Lyrica and Oxycodone. VTE prophylaxis: Lovenox. Dispo: 1-2 days pending improvement The patient is a 78-year-old lady who was admitted secondary to fever, leukocytosis and confusion. A CT scan also showed that she had an IVC filter which apparently had been placed in 2005 that suffered a strut failure. IR was recommended to retrieve the filter. The patient also had cultures which were positive for gram-positive cocci in chains and the patient initially had been on Rocephin and this was changed to meropenem. She is to have 1 g IV every 12 hours. The patient is also being provided DVT prophylaxis with the use of heparin 5000 units every 8 hours subcutaneously. She also had been complaining of a darkening of her urine and urinalysis been ordered. The patient has been encouraged to ambulate. She'll be kept on her regular diet as tolerated. She should be appropriate for discharge in 1-2 days depending upon follow-up studies.
[2018-09-14] MEDS: Pregabalin 75 MG Cap PO SCH ×2 (09:36→20:20)
[2018-09-14] MEDS: Propranolol 60 MG Cap.ER PO SCH (09:37)
[2018-09-14] MEDS: VILANTEROL INH SCH (10:06)
[2018-09-14] MEDS: FLUTICASONE INH SCH (10:06)
[2018-09-14] MEDS ORDERED: Enoxaparin 40 MG/0.4 ML Syringe SUBCUT SCH (11:00)
[2018-09-14] MEDS ORDERED: cefTRIAXone 1 GM in Premix Bag 1 BAG IV SCH (13:00)
[2018-09-14] MEDS ORDERED: Heparin Sodium 5,000 Units/ML Vial SUBCUT SCH (20:00)
[2018-09-14] MEDS: Acetaminophen 325 MG Tab PO PRN (23:54)
[2018-09-15] MEDS: Sodium Chloride 0.9% 1,000 ML IV SCH ×3 (00:02→19:06)
[2018-09-15] MEDS: cefTRIAXone 2 GM in Premix Bag 1 BAG IV SCH (07:59)
[2018-09-15 08:11] LABS: CHLORIDE,CL 108 mmol/L (98-107); SODIUM,NA 143 mmol/L (136-145)
[2018-09-15] MEDS: Pregabalin 75 MG Cap PO SCH ×2 (08:12→21:38)
[2018-09-15] MEDS: Propranolol 60 MG Cap.ER PO SCH (08:12)
[2018-09-15] MEDS: VILANTEROL INH SCH (08:13)
[2018-09-15] MEDS: FLUTICASONE INH SCH (08:13)
[2018-09-15] MEDS: Acetaminophen/oxyCODONE 325-10 MG Tab PO PRN ×4 (08:15→23:39)
--- NOTE | 2018-09-15 08:44 | PCM.PN ---
- General Info Date of Service: 09/15/18 Admission Dx/Problem (Free Text): Admission Diagnosis/Problem Admission Diagnosis/Problem Fever, confusion, shortness of breath, gram positive bacteremia. Subjective Update: The patient is a 78-year-old lady who was admitted secondary to fever and chills. The patient has a history of hypertension, COPD, DVT and right leg compartment syndrome due to DVT. The patient also had some confusion which is clear today. The patient had blood cultures that were positive for strep agalactiae. The patient did have redness of her leg which is improved. The patient is breathing better today. She has been tolerating diet. Her pain is also improved today. Functional Status: Reports: Pain Controlled - Review of Systems General: Reports: No Symptoms HEENT: Reports: No Symptoms Pulmonary: Reports: No Symptoms Cardiovascular: Reports: No Symptoms Gastrointestinal: Reports: No Symptoms Genitourinary: Reports: No Symptoms Musculoskeletal: Reports: Leg Pain Skin: Reports: No Symptoms Neurological: Reports: No Symptoms Psychiatric: Reports: No Symptoms - Patient Data Vitals - Most Recent: Last Vital Signs Temp 36.2 C 09/15/18 08:06 Pulse 56 L 09/15/18 08:06 Resp 18 09/15/18 08:06 BP 121/56 L 09/15/18 08:06 Pulse Ox 91 L 09/15/18 08:06 Weight - Most Recent: 81.647 kg I&O - Last 24 Hours: Intake & Output 09/14/18 09/15/18 09/15/18 22:59 06:59 14:59 Intake Total 950 550 50 Output Total 600 475 Balance 350 75 50 Lab Results Last 24 Hours: Laboratory Results - last 24 hr 09/15/18 09/15/18 Range/Units 07:45 07:45 WBC 5.37 (4.0-11.0) K/uL RBC 3.93 L (4.30-5.90) M/uL Hgb 10.9 L (12.0-16.0) g/dL Hct 35.1 L (36.0-46.0) % MCV 89.3 (80.0-98.0) fL MCH 27.7 (27.0-32.0) pg MCHC 31.1 (31.0-37.0) g/dL RDW Std Deviation 48.6 (28.0-62.0) fl RDW Coeff of Hansel 15 (11.0-15.0) % Plt Count 97 L (150-400) K/uL MPV 11.40 (7.40-12.00) fL Neut % (Auto) 48.7 (48.0-80.0) % Lymph % (Auto) 38.4 (16.0-40.0) % [place] % (Auto) 7.3 (0.0-15.0) % Eos % (Auto) 5.2 (0.0-7.0) % Baso % (Auto) 0.4 (0.0-1.5) % Neut # (Auto) 2.6 (1.4-5.7) K/uL Lymph # (Auto) 2.1 (0.6-2.4) K/uL [place] # (Auto) 0.4 (0.0-0.8) K/uL Eos # (Auto) 0.3 (0.0-0.7) K/uL Baso # (Auto) 0.0 (0.0-0.1) K/uL Nucleated RBC % 0.0 /100WBC Nucleated RBCs # 0 K/uL Sodium 143 (136-145) mmol/L Potassium 4.7 (3.5-5.1) mmol/L Chloride 108 H (98-107) mmol/L Carbon Dioxide 29.2 (21.0-32.0) mmol/L BUN 19 H (7.0-18.0) mg/dL Creatinine 0.9 (0.6-1.0) mg/dL Est Cr Clr Drug Dosing 44.25 mL/min Estimated GFR (MDRD) > 60.0 ml/min Glucose 121 H (74-106) mg/dL Calcium 8.2 L (8.5-10.1) mg/dL Andrei Results Last 24 Hours: Microbiology 09/13/18 12:44 Urine Culture - Final Urine, Clean Catch MIXED KEHINDE 1,000-10,000 CFU/ML 09/13/18 12:36 Aerobic Blood Culture - Final Blood - Venous - Lab Draw Anaerobic Blood Culture - Final 09/13/18 11:30 Aerobic Blood Culture - Final Blood - Venous Streptococcus Agalactiae Grp B Anaerobic Blood Culture - Final Med Orders - Current: Current Medications Acetaminophen (Tylenol) 650 mg PO Q4H PRN PRN Reason: Fever Last Admin: 09/14/18 23:54 Dose: 650 mg Albuterol (Proventil Neb Soln) 2.5 mg INH Q6HRRT PRN PRN Reason: Wheezing Albuterol (Ventolin Hfa) 1 gm INH Q6HRRT PRN PRN Reason: Shortness of Breath Albuterol/Ipratropium (Duoneb 3.0-0.5 Mg/3 Ml) 3 ml NEB Q4HRRT PRN PRN Reason: Shortness Of Breath/wheezing Sodium Chloride (Normal Saline) 1,000 mls @ 100 mls/hr IV ASDIRECTED [facility] Last Admin: 09/15/18 00:02 Dose: 100 mls/hr Ceftriaxone Sodium/Dextrose 2 (gm/ Premix) 50 mls @ 100 mls/hr IV Q24H [facility] Last Admin: 09/15/18 07:59 Dose: 100 mls/hr Ondansetron HCl (Zofran) 4 mg IVPUSH Q4H PRN PRN Reason: Nausea Last Admin: 09/13/18 16:03 Dose: 4 mg Oxycodone/Acetaminophen (Percocet 325-10 Mg) 1 tab PO Q4H PRN PRN Reason: Pain Last Admin: 09/15/18 08:15 Dose: 1 tab Fluticasone/ (Vilanterol 1 Inh) 1 each INH DAILY [facility] Last Admin: 09/15/18 08:13 Dose: Not Given Pregabalin (Lyrica) 300 mg PO BID [facility] Last Admin: 09/15/18 08:12 Dose: 300 mg Propranolol HCl (Inderal La) 60 mg PO DAILY [facility] Last Admin: 09/15/18 08:12 Dose: 60 mg Discontinued Medications Acetaminophen (Tylenol Extra Strength) 1,000 mg PO ONETIME ONE Stop: 09/13/18 11:28 Last Admin: 09/13/18 11:41 Dose: 1,000 mg Albuterol/Ipratropium (Duoneb 3.0-0.5 Mg/3 Ml) 3 ml NEB ONETIME ONE Stop: 09/13/18 11:58 Last Admin: 09/13/18 12:06 Dose: 3 ml Enoxaparin Sodium (Lovenox) 40 mg SUBCUT Q24H [facility] Last Admin: 09/14/18 11:15 Dose: 40 mg Heparin Sodium (Porcine) (Heparin Sodium) 5,000 units SUBCUT Q8H [facility] Sodium Chloride (Normal Saline) 1,000 mls @ 999 mls/hr IV STAT ONE Stop: 09/13/18 12:28 Last Admin: 09/13/18 11:46 Dose: 999 mls/hr Ceftriaxone Sodium/Dextrose 1 (gm/ Premix) 50 mls @ 100 mls/hr IV ONETIME ONE Stop: 09/13/18 13:34 Last Admin: 09/13/18 13:28 Dose: 100 mls/hr Ceftriaxone Sodium/Dextrose 1 (gm/ Premix) 50 mls @ 100 mls/hr IV Q24H [facility] Meropenem 1 gm/ Sodium (Chloride) 100 mls @ 200 mls/hr IV Q8H [facility] Stop: 09/14/18 09:00 Last Admin: 09/14/18 07:43 Dose: 200 mls/hr Sodium Chloride (Normal Saline) Confirm Administered Dose 100 mls @ as directed .ROUTE .STK-MED ONE Stop: 09/14/18 07:33 Last Admin: 09/14/18 08:00 Dose: Not Given Meropenem 1 gm/ Sodium (Chloride) 100 mls @ 200 mls/hr IV Q8H [facility] Meropenem 1 gm/ Sodium (Chloride) 100 mls @ 200 mls/hr IV Q12H [facility] Last Admin: 09/14/18 19:36 Dose: 200 mls/hr Meropenem (Merrem) Confirm Administered Dose 1 gm .ROUTE .STK-MED ONE Stop: 09/14/18 07:31 Last Admin: 09/14/18 08:00 Dose: Not Given - Exam Quality Assessment: No: Supplemental Oxygen General: Alert, Oriented, Cooperative, No Acute Distress HEENT: Pupils Equal, Pupils Reactive, EOMI, Mucous Membr. Moist/[place] Neck: Supple, Trachea Midline Lungs: Clear to Auscultation, Normal Respiratory Effort Cardiovascular: Regular Rate, Regular Rhythm GI/Abdominal Exam: Normal Bowel Sounds, Soft, No Distention Back Exam: Normal Inspection, Full Range of Motion Extremities: Normal Inspection, No Pedal Edema, Other (Prior fasciotomy right lower extremity) Skin: Warm, Dry, Intact, Other (Less erythema and redness right lower extremity) Neurological: No New Focal Deficit Psy/Mental Status: Alert, Normal Affect - Problem List & Annotations (1) Gram-positive bacteremia SNOMED Code(s): 527108978962 Code(s): R78.81 - BACTEREMIA Status: Acute Priority: High Current Visit : Yes Annotation/Comment:: Streptococcus agalactiae, pansensitive (2) Fever SNOMED Code(s): 504433887 Code(s): R50.9 - FEVER, UNSPECIFIED Status: Resolved Current Visit: Yes Qualifiers: Fever type: unspecified Qualified Code(s): R50.9 - Fever, unspecified (3) Presence of IVC filter SNOMED Code(s): 286638343047970, 359573303839992 Code(s): Z95.828 - PRESENCE OF OTHER VASCULAR IMPLANTS AND GRAFTS Status: Chronic Priority: Medium Current Visit: Yes Annotation/Comment:: Fractured strut (4) Leukocytosis SNOMED Code(s): 549543542, 752218556 Code(s): D72.829 - ELEVATED WHITE BLOOD CELL COUNT, UNSPECIFIED Status: Acute Priority: High Current Visit: Yes Qualifiers: Leukocytosis type: unspecified Qualified Code(s): D72.829 - Elevated white blood cell count, unspecified (5) HTN (hypertension) SNOMED Code(s): 12984038 Code(s): I10 - ESSENTIAL (PRIMARY) HYPERTENSION Status: Chronic Priority : High Current Visit: Yes Qualifiers: Hypertension type: essential hypertension Qualified Code(s): I10 - Essential (primary) hypertension (6) Hx of deep venous thrombosis SNOMED Code(s): 362202679 Code(s): Z86.718 - PERSONAL HISTORY OF OTHER VENOUS THROMBOSIS AND EMBOLISM Status: Chronic Priority: Medium Current Visit: Yes - Problem List Review Problem List Initiated/Reviewed/Updated: Yes - My Orders Last 24 Hours: My Active Orders 09/14/18 09:00 Patient's Own Medication [Ptom] 1 each INH DAILY Propranolol [Inderal LA] 60 mg PO DAILY 09/14/18 11:14 Resuscitation Status Routine 09/15/18 07:30 cefTRIAXone [Rocephin in Dextrose,Iso-Osm 2 GM/50 ML] 2 gm Premix Bag 1 bag IV Q24H - Plan Plan:: The patient is a 78-year-old lady who had been admitted initially with fever, leukocytosis and confusion. Her altered mental status has improved. The patient initially had been on meropenem and as a result of the cultures the patient was placed on ceftriaxone for the pansensitive Streptococcus agalactiae. The patient will also be kept on DVT prophylaxis with heparin at 5000 units every 8 hours subcutaneously. The patient also in spite of having a history of a DVT in her right lower extremity has not been on chronic anticoagulation. The patient' s swelling of her right lower extremity has improved and this is likely the source of her bacteremia. Repeat laboratory studies have been ordered for the morning. She also has been encouraged to ambulate. Repeat laboratory studies have been ordered for the morning. The patient should be appropriate for discharge in 1-2 days. Noted that the patient does have an IVC filter in place with a broken strut that has been recommended to be removed by interventional radiology. The patient is aware of this and she has an appointment with the interventional radiologist that placed to IVC filter next week. The patient has been recommended to follow up with that appointment.
[2018-09-15] MEDS: Docusate Sodium 100 MG Cap PO PRN (17:35)
[2018-09-15] MEDS: Acetaminophen 325 MG Tab PO PRN (23:39)
[2018-09-16] MEDS: Sodium Chloride 0.9% 1,000 ML IV SCH (05:20)
[2018-09-16] MEDS: cefTRIAXone 2 GM in Premix Bag 1 BAG IV SCH (06:34)
[2018-09-16 06:50] LABS: CHLORIDE,CL 105 mmol/L (98-107); SODIUM,NA 139 mmol/L (136-145)
[2018-09-16] MEDS: Acetaminophen/oxyCODONE 325-10 MG Tab PO PRN ×4 (07:52→20:46)
[2018-09-16] MEDS: Pregabalin 75 MG Cap PO SCH ×2 (08:15→20:46)
[2018-09-16] MEDS: Propranolol 60 MG Cap.ER PO SCH (08:16)
[2018-09-16] MEDS: FLUTICASONE INH SCH (08:18)
[2018-09-16] MEDS: VILANTEROL INH SCH (08:18)
[2018-09-16] MEDS: Acetaminophen 325 MG Tab PO PRN ×2 (09:45→20:47)
--- NOTE | 2018-09-16 10:17 | PCM.PN ---
- General Info Date of Service: 09/16/18 Admission Dx/Problem (Free Text): Bacteremia, cellulitis Subjective Update: Doing well this morning, leg is improving. Reports redness comes and goes, worse in the evening. Still warm. Tender to touch. No chest pain or SOB. No further confusion. No fevers. Functional Status: Reports: Pain Controlled, Tolerating Diet, Ambulating, Urinating - Review of Systems General: Denies: Fever, Weakness, Malaise Pulmonary: Denies: Shortness of Breath Cardiovascular: Denies: Chest Pain Gastrointestinal: Denies: Abdominal Pain, Nausea, Vomiting Genitourinary: Reports: No Symptoms. Denies: Dysuria, Frequency, Burning Musculoskeletal: Reports: Leg Pain (R lower leg with erythema. ) Skin: Reports: Other (redness to R lower leg) Neurological: Reports: No Symptoms. Denies: Confusion Psychiatric: Reports: No Symptoms - Patient Data Vitals - Most Recent: Last Vital Signs Temp 97.0 F 09/16/18 08:00 Pulse 51 L 09/16/18 08:00 Resp 16 09/16/18 08:00 BP 200/95 H 09/16/18 08:00 Pulse Ox 93 L 09/16/18 08:00 Weight - Most Recent: 81.647 kg I&O - Last 24 Hours: Intake & Output 09/15/18 09/16/18 09/16/18 22:59 06:59 14:59 Intake Total 3250 2240 Output Total 700 600 Balance 2550 1640 Lab Results Last 24 Hours: Laboratory Results - last 24 hr 09/16/18 09/16/18 Range/Units 05:25 05:25 WBC 4.76 (4.0-11.0) K/uL RBC 3.96 L (4.30-5.90) M/uL Hgb 11.0 L (12.0-16.0) g/dL Hct 35.2 L (36.0-46.0) % MCV 88.9 (80.0-98.0) fL MCH 27.8 (27.0-32.0) pg MCHC 31.3 (31.0-37.0) g/dL RDW Std Deviation 48.2 (28.0-62.0) fl RDW Coeff of Hansel 15 (11.0-15.0) % Plt Count 111 L (150-400) K/uL MPV 11.60 (7.40-12.00) fL Neut % (Auto) 44.5 L (48.0-80.0) % Lymph % (Auto) 43.5 H (16.0-40.0) % [place]are % (Auto) 5.9 (0.0-15.0) % Eos % (Auto) 5.5 (0.0-7.0) % Baso % (Auto) 0.6 (0.0-1.5) % Neut # (Auto) 2.1 (1.4-5.7) K/uL Lymph # (Auto) 2.1 (0.6-2.4) K/uL Dare # (Auto) 0.3 (0.0-0.8) K/uL Eos # (Auto) 0.3 (0.0-0.7) K/uL Baso # (Auto) 0.0 (0.0-0.1) K/uL Nucleated RBC % 0.0 /100WBC Nucleated RBCs # 0 K/uL Sodium 139 (136-145) mmol/L Potassium 4.1 (3.5-5.1) mmol/L Chloride 105 (98-107) mmol/L Carbon Dioxide 26.8 (21.0-32.0) mmol/L BUN 18 (7.0-18.0) mg/dL Creatinine 0.9 (0.6-1.0) mg/dL Est Cr Clr Drug Dosing 44.25 mL/min Estimated GFR (MDRD) > 60.0 ml/min Glucose 93 (74-106) mg/dL Calcium 8.2 L (8.5-10.1) mg/dL Andrei Results Last 24 Hours: Microbiology 09/13/18 12:44 Urine Culture - Final Urine, Clean Catch MIXED KEHINDE 1,000-10,000 CFU/ML 09/13/18 12:36 Aerobic Blood Culture - Final Blood - Venous - Lab Draw Anaerobic Blood Culture - Final 09/13/18 11:30 Aerobic Blood Culture - Final Blood - Venous Streptococcus Agalactiae Grp B Anaerobic Blood Culture - Final Med Orders - Current: Current Medications Acetaminophen (Tylenol) 650 mg PO Q4H PRN PRN Reason: Fever Last Admin: 09/16/18 09:45 Dose: 650 mg Albuterol (Proventil Neb Soln) 2.5 mg INH Q6HRRT PRN PRN Reason: Wheezing Albuterol (Ventolin Hfa) 1 gm INH Q6HRRT PRN PRN Reason: Shortness of Breath Albuterol/Ipratropium (Duoneb 3.0-0.5 Mg/3 Ml) 3 ml NEB Q4HRRT PRN PRN Reason: Shortness Of Breath/wheezing Docusate Sodium (Colace) 100 mg PO BID PRN PRN Reason: Constipation Last Admin: 09/15/18 17:35 Dose: 100 mg Ceftriaxone Sodium/Dextrose 2 (gm/ Premix) 50 mls @ 100 mls/hr IV Q24H [facility] Last Admin: 09/16/18 06:34 Dose: 100 mls/hr Ondansetron HCl (Zofran) 4 mg IVPUSH Q4H PRN PRN Reason: Nausea Last Admin: 09/13/18 16:03 Dose: 4 mg Oxycodone/Acetaminophen (Percocet 325-10 Mg) 1 tab PO Q4H PRN PRN Reason: Pain Last Admin: 09/16/18 07:52 Dose: 1 tab Fluticasone/ (Vilanterol 1 Inh) 1 each INH DAILY [facility] Last Admin: 09/16/18 08:18 Dose: 1 each Pregabalin (Lyrica) 300 mg PO BID [facility] Last Admin: 09/16/18 08:15 Dose: 300 mg Propranolol HCl (Inderal La) 60 mg PO DAILY [facility] Last Admin: 09/16/18 08:16 Dose: 60 mg Discontinued Medications Acetaminophen (Tylenol Extra Strength) 1,000 mg PO ONETIME ONE Stop: 09/13/18 11:28 Last Admin: 09/13/18 11:41 Dose: 1,000 mg Albuterol/Ipratropium (Duoneb 3.0-0.5 Mg/3 Ml) 3 ml NEB ONETIME ONE Stop: 09/13/18 11:58 Last Admin: 09/13/18 12:06 Dose: 3 ml Enoxaparin Sodium (Lovenox) 40 mg SUBCUT Q24H [facility] Last Admin: 09/14/18 11:15 Dose: 40 mg Heparin Sodium (Porcine) (Heparin Sodium) 5,000 units SUBCUT Q8H [facility] Sodium Chloride (Normal Saline) 1,000 mls @ 999 mls/hr IV STAT ONE Stop: 09/13/18 12:28 Last Admin: 09/13/18 11:46 Dose: 999 mls/hr Ceftriaxone Sodium/Dextrose 1 (gm/ Premix) 50 mls @ 100 mls/hr IV ONETIME ONE Stop: 09/13/18 13:34 Last Admin: 09/13/18 13:28 Dose: 100 mls/hr Sodium Chloride (Normal Saline) 1,000 mls @ 100 mls/hr IV ASDIRECTED [facility] Last Admin: 09/16/18 05:20 Dose: 100 mls/hr Ceftriaxone Sodium/Dextrose 1 (gm/ Premix) 50 mls @ 100 mls/hr IV Q24H [facility] Meropenem 1 gm/ Sodium (Chloride) 100 mls @ 200 mls/hr IV Q8H [facility] Stop: 09/14/18 09:00 Last Admin: 09/14/18 07:43 Dose: 200 mls/hr Sodium Chloride (Normal Saline) Confirm Administered Dose 100 mls @ as directed .ROUTE .STK-MED ONE Stop: 09/14/18 07:33 Last Admin: 09/14/18 08:00 Dose: Not Given Meropenem 1 gm/ Sodium (Chloride) 100 mls @ 200 mls/hr IV Q8H [facility] Meropenem 1 gm/ Sodium (Chloride) 100 mls @ 200 mls/hr IV Q12H [facility] Last Admin: 09/14/18 19:36 Dose: 200 mls/hr Meropenem (Merrem) Confirm Administered Dose 1 gm .ROUTE .STK-MED ONE Stop: 09/14/18 07:31 Last Admin: 09/14/18 08:00 Dose: Not Given - Exam General: Alert, Oriented, Cooperative, No Acute Distress Lungs: Clear to Auscultation, Normal Respiratory Effort Cardiovascular: Regular Rate, Regular Rhythm GI/Abdominal Exam: Normal Bowel Sounds, Soft, Non-Tender Back Exam: Normal Inspection, Full Range of Motion Extremities: Normal Range of Motion, No Pedal Edema, Increased Warmth (R lower leg), Redness (R lower leg) Wound/Incisions: Erythema Improving (R lower leg) Neurological: No New Focal Deficit Psy/Mental Status: Alert, Normal Affect, Normal Mood - Problem List & Annotations (1) Bacteremia SNOMED Code(s): 6921370 Code(s): R78.81 - BACTEREMIA Status: Acute Current Visit: Yes (2) Cellulitis SNOMED Code(s): 359860141 Code(s): L03.90 - CELLULITIS, UNSPECIFIED Status: Acute Current Visit: Yes (3) Fever SNOMED Code(s): 104797323 Code(s): R50.9 - FEVER, UNSPECIFIED Status: Resolved Current Visit: Yes Qualifiers: Fever type: unspecified Qualified Code(s): R50.9 - Fever, unspecified (4) Leukocytosis SNOMED Code(s): 830119206, 106685504 Code(s): D72.829 - ELEVATED WHITE BLOOD CELL COUNT, UNSPECIFIED Status: Acute Priority: High Current Visit: Yes Qualifiers: Leukocytosis type: unspecified Qualified Code(s): D72.829 - Elevated white blood cell count, unspecified (5) Chronic pain of right lower extremity SNOMED Code(s): 83664638 Code(s): M79.604 - PAIN IN RIGHT LEG; G89.29 - OTHER CHRONIC PAIN Status: Acute Current Visit: No (6) Peripheral neuropathy SNOMED Code(s): 025514944 Code(s): G62.9 - POLYNEUROPATHY, UNSPECIFIED Status: Acute Current Visit : No Qualifiers: Peripheral neuropathy type: mononeuropathy, unspecified Qualified Code(s): G58.9 - Mononeuropathy, unspecified (7) Chronic pain SNOMED Code(s): 45008439 Code(s): G89.29 - OTHER CHRONIC PAIN Status: Chronic Current Visit: No Qualifiers: Chronic pain type: due to trauma Qualified Code(s): G89.21 - Chronic pain due to trauma (8) HTN (hypertension) SNOMED Code(s): 03146211 Code(s): I10 - ESSENTIAL (PRIMARY) HYPERTENSION Status: Chronic Priority : High Current Visit: Yes Qualifiers: Hypertension type: essential hypertension Qualified Code(s): I10 - Essential (primary) hypertension (9) Hx of deep venous thrombosis SNOMED Code(s): 474269995 Code(s): Z86.718 - PERSONAL HISTORY OF OTHER VENOUS THROMBOSIS AND EMBOLISM Status: Chronic Priority: Medium Current Visit: Yes (10) Hx of fasciotomy SNOMED Code(s): 777900811 Code(s): Z98.890 - OTHER SPECIFIED POSTPROCEDURAL STATES Status: Chronic Current Visit: No - Problem List Review Problem List Initiated/Reviewed/Updated: Yes - My Orders Last 24 Hours: My Active Orders 09/16/18 08:09 Blood Culture x2 Reflex Set [OM.PC] Stat 09/16/18 08:27 CULTURE BLOOD [BC] Stat 09/16/18 08:37 CULTURE BLOOD [BC] Stat 09/16/18 10:00 Venous Doppler Lwr Ext Rt [US] Urgent 09/16/18 10:14 Patient Status [ADT] Stat - Plan Plan:: This 78 year old female admitted with fever, leukocytosis and confusion, which has already cleared. 1. Cellulitis R leg: Appeared sunday evening into Sunday. BC returned / positive and are growing Group B strep. Rocephin 2 gm IV daily continued. I spoke with Dr Celaya regarding diagnoses and concern for IVC filter. he feels yes that should be removed, but bacteremia likely secondary to cellulitis. Repeat BC today to insure clearing and plan for PICC line once cultures are cleared. Will also obtain doppler of R leg to rule out DVT. 2. COPD: Stable, Continue inhalers. Duonebs PRN. 3. HTN: Stable, continue Propranolol. 4. Chronic pain: Continue Lyrica and Oxycodone. VTE prophylaxis: Lovenox. Dispo: Make inpatient status due to bacteremia, continued IV antibiotics until cultures clear and PICC line can then be placed. 2-3 days.
--- NOTE | 2018-09-16 11:19 | US ---
ULTRASOUND EXAMINATION OF the right lower extremity WITH DOPPLER HISTORY: Pain FINDINGS: Examination of the right leg was performed from the groin to the calf region. All visualized segments including common femoral, proximal greater saphenous, superficial femoral, popliteal and calf veins appear patent with good compressibility and augmentation. There is no evidence of deep vein thrombosis. [address]'s cyst noted. IMPRESSION: No evidence of a DVT.
[2018-09-16] MEDS: Enoxaparin 40 MG/0.4 ML Syringe SUBCUT SCH (11:56)
[2018-09-16] MEDS: Sertraline 100 MG Tab PO SCH (16:01)
--- NOTE | 2018-09-16 16:02 | PCM.SN ---
- Free Text/Narrative Note: Spoke with Dr Nelson, Cardiovascular surgeon regarding IVC filter fracture. He recommended treatment of bacteremia and he would see her as outpatient to schedule removal of IVC filter. I notified Henrietta of this and will arrange follow up appointment in 3-4 weeks.
[2018-09-16] MEDS: Hydrochlorothiazide 25 MG Tab PO SCH (16:43)
[2018-09-17] MEDS ORDERED: cloNIDine 0.1 MG Tab PO ONE (00:05)
[2018-09-17] MEDS: Acetaminophen/oxyCODONE 325-10 MG Tab PO PRN ×5 (00:18→20:14)
[2018-09-17 06:11] LABS: CHLORIDE,CL 104 mmol/L (98-107); SODIUM,NA 142 mmol/L (136-145)
[2018-09-17] MEDS: cefTRIAXone 2 GM in Premix Bag 1 BAG IV SCH (06:44)
[2018-09-17] MEDS: Pregabalin 75 MG Cap PO SCH ×2 (08:10→20:13)
[2018-09-17] MEDS: Sertraline 100 MG Tab PO SCH (08:11)
[2018-09-17] MEDS: Hydrochlorothiazide 25 MG Tab PO SCH (08:11)
[2018-09-17] MEDS: Propranolol 60 MG Cap.ER PO SCH (08:11)
[2018-09-17] MEDS: FLUTICASONE INH SCH (08:12)
[2018-09-17] MEDS: VILANTEROL INH SCH (08:12)
--- NOTE | 2018-09-17 09:14 | PCM.PN ---
- General Info Date of Service: 09/17/18 Admission Dx/Problem (Free Text): Bacteremia, cellulitis Subjective Update: Doing well today, no complaints. No fever and pain to leg is improved. NO chest pain, mild wheezing she noted last night. Functional Status: Reports: Pain Controlled, Tolerating Diet, Ambulating, Urinating - Review of Systems General: Reports: No Symptoms. Denies: Fever, Weakness HEENT: Reports: No Symptoms. Denies: Headaches, Visual Changes Pulmonary: Reports: No Symptoms. Denies: Shortness of Breath, Pleuritic Chest Pain Cardiovascular: Reports: No Symptoms. Denies: Chest Pain, Palpitations, Dyspnea on Exertion Gastrointestinal: Reports: No Symptoms. Denies: Abdominal Pain, Nausea, Vomiting Genitourinary: Reports: No Symptoms. Denies: Dysuria, Frequency, Burning Musculoskeletal: Reports: No Symptoms Skin: Reports: No Symptoms Neurological: Reports: No Symptoms. Denies: Confusion Psychiatric: Reports: No Symptoms. Denies: Confusion - Patient Data Vitals - Most Recent: Last Vital Signs Temp 97.3 F 09/17/18 07:56 Pulse 61 09/17/18 07:56 Resp 16 09/17/18 07:56 BP 190/87 H 09/17/18 07:56 Pulse Ox 93 L 09/17/18 07:56 Weight - Most Recent: 81.647 kg I&O - Last 24 Hours: Intake & Output 09/16/18 09/17/18 09/17/18 22:59 06:59 14:59 Intake Total 960 850 Output Total 1000 2200 Balance -40 -1350 Lab Results Last 24 Hours: Laboratory Results - last 24 hr 09/17/18 09/17/18 Range/Units 05:42 05:42 WBC 6.02 (4.0-11.0) K/uL RBC 4.32 (4.30-5.90) M/uL Hgb 12.1 (12.0-16.0) g/dL Hct 37.3 (36.0-46.0) % MCV 86.3 (80.0-98.0) fL MCH 28.0 (27.0-32.0) pg MCHC 32.4 (31.0-37.0) g/dL RDW Std Deviation 44.7 (28.0-62.0) fl RDW Coeff of Hansel 14 (11.0-15.0) % Plt Count 134 L (150-400) K/uL MPV 11.10 (7.40-12.00) fL Neut % (Auto) 57.5 (48.0-80.0) % Lymph % (Auto) 31.2 (16.0-40.0) % Mineral % (Auto) 7.3 (0.0-15.0) % Eos % (Auto) 3.3 (0.0-7.0) % Baso % (Auto) 0.7 (0.0-1.5) % Neut # (Auto) 3.5 (1.4-5.7) K/uL Lymph # (Auto) 1.9 (0.6-2.4) K/uL Mineral # (Auto) 0.4 (0.0-0.8) K/uL Eos # (Auto) 0.2 (0.0-0.7) K/uL Baso # (Auto) 0.0 (0.0-0.1) K/uL Nucleated RBC % 0.0 /100WBC Nucleated RBCs # 0 K/uL Sodium 142 (136-145) mmol/L Potassium 4.3 (3.5-5.1) mmol/L Chloride 104 (98-107) mmol/L Carbon Dioxide 32.8 H (21.0-32.0) mmol/L BUN 16 (7.0-18.0) mg/dL Creatinine 0.9 (0.6-1.0) mg/dL Est Cr Clr Drug Dosing 44.25 mL/min Estimated GFR (MDRD) > 60.0 ml/min Glucose 109 H (74-106) mg/dL Calcium 9.1 (8.5-10.1) mg/dL Andrei Results Last 24 Hours: Microbiology 09/16/18 08:37 Aerobic Blood Culture - Preliminary Blood - Venous - Lab Draw NO GROWTH AFTER 1 DAY Anaerobic Blood Culture - Preliminary NO GROWTH AFTER 1 DAY 09/16/18 08:27 Aerobic Blood Culture - Preliminary Blood - Venous NO GROWTH AFTER 1 DAY Anaerobic Blood Culture - Preliminary NO GROWTH AFTER 1 DAY Med Orders - Current: Current Medications Acetaminophen (Tylenol) 650 mg PO Q4H PRN PRN Reason: Fever Last Admin: 09/16/18 20:47 Dose: 650 mg Albuterol (Proventil Neb Soln) 2.5 mg INH Q6HRRT PRN PRN Reason: Wheezing Last Admin: 09/17/18 00:17 Dose: 2.5 mg Albuterol (Ventolin Hfa) 1 gm INH Q6HRRT PRN PRN Reason: Shortness of Breath Albuterol/Ipratropium (Duoneb 3.0-0.5 Mg/3 Ml) 3 ml NEB Q4HRRT PRN PRN Reason: Shortness Of Breath/wheezing Docusate Sodium (Colace) 100 mg PO BID PRN PRN Reason: Constipation Last Admin: 09/15/18 17:35 Dose: 100 mg Enoxaparin Sodium (Lovenox) 40 mg SUBCUT Q24H [facility] Last Admin: 09/16/18 11:56 Dose: 40 mg Hydrochlorothiazide (Hydrochlorothiazide) 25 mg PO DAILY [facility] Last Admin: 09/17/18 08:11 Dose: 25 mg Ceftriaxone Sodium/Dextrose 2 (gm/ Premix) 50 mls @ 100 mls/hr IV Q24H [facility] Last Admin: 09/17/18 06:44 Dose: 100 mls/hr Ondansetron HCl (Zofran) 4 mg IVPUSH Q4H PRN PRN Reason: Nausea Last Admin: 09/13/18 16:03 Dose: 4 mg Oxycodone/Acetaminophen (Percocet 325-10 Mg) 1 tab PO Q4H PRN PRN Reason: Pain Last Admin: 09/17/18 07:23 Dose: 1 tab Fluticasone/ (Vilanterol 1 Inh) 1 each INH DAILY [facility] Last Admin: 09/17/18 08:12 Dose: 1 each Pregabalin (Lyrica) 300 mg PO BID [facility] Last Admin: 09/17/18 08:10 Dose: 300 mg Propranolol HCl (Inderal La) 60 mg PO DAILY [facility] Last Admin: 09/17/18 08:11 Dose: 60 mg Sertraline HCl (Zoloft) 100 mg PO DAILY [facility] Last Admin: 09/17/18 08:11 Dose: 100 mg Discontinued Medications Acetaminophen (Tylenol Extra Strength) 1,000 mg PO ONETIME ONE Stop: 09/13/18 11:28 Last Admin: 09/13/18 11:41 Dose: 1,000 mg Albuterol/Ipratropium (Duoneb 3.0-0.5 Mg/3 Ml) 3 ml NEB ONETIME ONE Stop: 09/13/18 11:58 Last Admin: 09/13/18 12:06 Dose: 3 ml Clonidine HCl (Catapres) 0.1 mg PO ONETIME ONE Stop: 09/17/18 00:06 Last Admin: 09/17/18 00:14 Dose: 0.1 mg Enoxaparin Sodium (Lovenox) 40 mg SUBCUT Q24H [facility] Last Admin: 09/14/18 11:15 Dose: 40 mg Heparin Sodium (Porcine) (Heparin Sodium) 5,000 units SUBCUT Q8H [facility] Sodium Chloride (Normal Saline) 1,000 mls @ 999 mls/hr IV STAT ONE Stop: 09/13/18 12:28 Last Admin: 09/13/18 11:46 Dose: 999 mls/hr Ceftriaxone Sodium/Dextrose 1 (gm/ Premix) 50 mls @ 100 mls/hr IV ONETIME ONE Stop: 09/13/18 13:34 Last Admin: 09/13/18 13:28 Dose: 100 mls/hr Sodium Chloride (Normal Saline) 1,000 mls @ 100 mls/hr IV ASDIRECTED [facility] Last Admin: 09/16/18 05:20 Dose: 100 mls/hr Ceftriaxone Sodium/Dextrose 1 (gm/ Premix) 50 mls @ 100 mls/hr IV Q24H [facility] Meropenem 1 gm/ Sodium (Chloride) 100 mls @ 200 mls/hr IV Q8H [facility] Stop: 09/14/18 09:00 Last Admin: 09/14/18 07:43 Dose: 200 mls/hr Sodium Chloride (Normal Saline) Confirm Administered Dose 100 mls @ as directed .ROUTE .STK-MED ONE Stop: 09/14/18 07:33 Last Admin: 09/14/18 08:00 Dose: Not Given Meropenem 1 gm/ Sodium (Chloride) 100 mls @ 200 mls/hr IV Q8H [facility] Meropenem 1 gm/ Sodium (Chloride) 100 mls @ 200 mls/hr IV Q12H [facility] Last Admin: 09/14/18 19:36 Dose: 200 mls/hr Meropenem (Merrem) Confirm Administered Dose 1 gm .ROUTE .STK-MED ONE Stop: 09/14/18 07:31 Last Admin: 09/14/18 08:00 Dose: Not Given - Exam General: Alert, Oriented, Cooperative Lungs: Clear to Auscultation, Normal Respiratory Effort Cardiovascular: Regular Rate, Regular Rhythm GI/Abdominal Exam: Normal Bowel Sounds, Soft, Non-Tender, No Organomegaly, No Distention Extremities: Normal Inspection, Normal Range of Motion, Non-Tender, No Pedal Edema Wound/Incisions: Erythema Improving, Other (reports giving self a pedicure Sunday evening before getting sick. callous noted to R great toe with areas of old bleeding noted and flaking skin. ) Neurological: No New Focal Deficit Psy/Mental Status: Alert, Normal Affect, Normal Mood - Problem List & Annotations (1) Bacteremia SNOMED Code(s): 3771817 Code(s): R78.81 - BACTEREMIA Status: Acute Current Visit: Yes (2) Cellulitis SNOMED Code(s): 897196573 Code(s): L03.90 - CELLULITIS, UNSPECIFIED Status: Acute Current Visit: Yes (3) Fever SNOMED Code(s): 306789448 Code(s): R50.9 - FEVER, UNSPECIFIED Status: Resolved Current Visit: Yes Qualifiers: Fever type: unspecified Qualified Code(s): R50.9 - Fever, unspecified (4) Leukocytosis SNOMED Code(s): 047608346, 501866342 Code(s): D72.829 - ELEVATED WHITE BLOOD CELL COUNT, UNSPECIFIED Status: Acute Priority: High Current Visit: Yes Qualifiers: Leukocytosis type: unspecified Qualified Code(s): D72.829 - Elevated white blood cell count, unspecified (5) Chronic pain of right lower extremity SNOMED Code(s): 37312196 Code(s): M79.604 - PAIN IN RIGHT LEG; G89.29 - OTHER CHRONIC PAIN Status: Acute Current Visit: No (6) Peripheral neuropathy SNOMED Code(s): 019587509 Code(s): G62.9 - POLYNEUROPATHY, UNSPECIFIED Status: Acute Current Visit : No Qualifiers: Peripheral neuropathy type: mononeuropathy, unspecified Qualified Code(s): G58.9 - Mononeuropathy, unspecified (7) Chronic pain SNOMED Code(s): 88906637 Code(s): G89.29 - OTHER CHRONIC PAIN Status: Chronic Current Visit: No Qualifiers: Chronic pain type: due to trauma Qualified Code(s): G89.21 - Chronic pain due to trauma (8) HTN (hypertension) SNOMED Code(s): 22956283 Code(s): I10 - ESSENTIAL (PRIMARY) HYPERTENSION Status: Chronic Priority : High Current Visit: Yes Qualifiers: Hypertension type: essential hypertension Qualified Code(s): I10 - Essential (primary) hypertension (9) Hx of deep venous thrombosis SNOMED Code(s): 385464954 Code(s): Z86.718 - PERSONAL HISTORY OF OTHER VENOUS THROMBOSIS AND EMBOLISM Status: Chronic Priority: Medium Current Visit: Yes (10) Hx of fasciotomy SNOMED Code(s): 296332120 Code(s): Z98.890 - OTHER SPECIFIED POSTPROCEDURAL STATES Status: Chronic Current Visit: No - Problem List Review Problem List Initiated/Reviewed/Updated: Yes - My Orders Last 24 Hours: My Active Orders 09/16/18 08:27 CULTURE BLOOD [BC] Stat 09/16/18 08:37 CULTURE BLOOD [BC] Stat 09/16/18 10:14 Patient Status [ADT] Stat 09/16/18 11:30 Enoxaparin [Lovenox] 40 mg SUBCUT Q24H 09/16/18 14:30 Sertraline [Zoloft] 100 mg PO DAILY 09/17/18 09:07 Central Line PICC Insertion [Central Venous Line Insertion] [OM.PC] Routine 09/17/18 09:08 PICC Line Insertion [CR] Routine 09/18/18 05:11 BMP [BASIC METABOLIC PANEL,BMP] [CHEM] AM CBC WITH AUTO DIFF [HEME] AM 09/19/18 05:11 BMP [BASIC METABOLIC PANEL,BMP] [CHEM] AM CBC WITH AUTO DIFF [HEME] AM - Plan Plan:: This 78 year old female admitted with fever, leukocytosis and confusion, which has already cleared. 1. Group B strep bacteremia and Cellulitis R leg: Reported yesterday she gave herself a pedicure Sunday evening before getting sick, picked at callous and it was bleeding. Erythema to leg improving. Repeat BC returned no growth x 1 day this morning, Continue Rocephin 2 gm IV daily. No DVT to R leg. Plan for PICC placement in am. 2. COPD: Stable, Continue inhalers. Duonebs PRN. 3. HTN: Stable, continue Propranolol. 4. Chronic pain: Continue Lyrica and Oxycodone. VTE prophylaxis: Lovenox. Dispo: 1-2 days
[2018-09-17] MEDS: Enoxaparin 40 MG/0.4 ML Syringe SUBCUT SCH (10:51)
--- NOTE | 2018-09-17 15:05 | CR ---
EXAMINATION: Two-view chest (PA and Lateral views). HISTORY: Dyspnea. FINDINGS: The trachea is midline. The cardiomediastinal silhouette is within normal limits. Trace left basilar atelectasis and/or infiltrate. Left-sided PICC line is noted with tip near the atrial caval junction. Osseous structures appear unremarkable. IMPRESSION: Trace left basilar atelectasis and/or infiltrate.
--- NOTE | 2018-09-17 15:23 | CR ---
EXAMINATION: Fluoro and ultrasound guided left-sided PICC line placement. HISTORY: Bacteremia. TECHNIQUE/FINDINGS: After written informed consent was obtained from the patient using ultrasound and Fluoro guidance under aseptic conditions utilizing 1% lidocaine as local anesthesia left basilic vein was accessed and 5 [place] PICC catheter was deployed with its tip in the distal superior vena cava. The catheter flushes and withdraws blood well. The catheter is flushed with the diluted heparin. The catheter secured well. IMPRESSION: Successful Fluoro and ultrasound guided PICC line placement.
[2018-09-17] MEDS: Docusate Sodium 100 MG Cap PO PRN (20:13)
[2018-09-18] MEDS: Acetaminophen/oxyCODONE 325-10 MG Tab PO PRN ×3 (00:21→10:10)
[2018-09-18 05:59] LABS: CHLORIDE,CL 102 mmol/L (98-107); SODIUM,NA 140 mmol/L (136-145)
[2018-09-18] MEDS: cefTRIAXone 2 GM in Premix Bag 1 BAG IV SCH (06:31)
--- NOTE | 2018-09-18 08:45 | PCM.DCSUM1 ---
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 She reports last evening she started feeling off and thought maybe had a gas leak in her house. EMS checked the house and nothing was noted. She reports some mild cough, congestion and headache. No neck pain, blurred vision or ear pain. No sore throat. She denies chest pain, has mild increased SOB from baseline mild non-productive cough. She denies nausea, vomiting or trouble eating. She reports mild abdominal discomfort. She reports cholecystectomy and appendectomy. She reports mild dysuria, no frequency or urgency. She denies any recent sick contacts. She has a history of smoking but quit any years ago, no alcohol use and no recreational drug use. In the ED leukocytosis noted, 13,210, lactate 1.1 Na 135, Cl 97, Bilirubin 1.[address] negative. Temp in the ED was noted to be 102.3, she was given tylenol. BC and UC obtained and are pending. UA negative appearing. She was given Rocpehin 1 gm IV as well as 1 L NS. Family reports she is near baseline now in the ED, no further confusion noted. Diagnosis: Stroke: No - Discharge Data Discharge Date: 09/18/18 Discharge Disposition: Home, [facility] Condition: Stable - Discharge Diagnosis/Problem(s) (1) Bacteremia SNOMED Code(s): 3243031 ICD Code: R78.81 - BACTEREMIA Status: Acute Current Visit: Yes (2) Cellulitis SNOMED Code(s): 543063399 ICD Code: L03.90 - CELLULITIS, UNSPECIFIED Status: Acute Current Visit: Yes Qualifiers: Site of cellulitis of extremity: lower extremity Laterality: right (3) Fever SNOMED Code(s): 172538454 ICD Code: R50.9 - FEVER, UNSPECIFIED Status: Resolved Current Visit: Yes Qualifiers: Fever type: unspecified Qualified Code(s): R50.9 - Fever, unspecified (4) Leukocytosis SNOMED Code(s): 930583567, 010846355 ICD Code: D72.829 - ELEVATED WHITE BLOOD CELL COUNT, UNSPECIFIED Status: Acute Priority: High Current Visit: Yes Qualifiers: Leukocytosis type: unspecified Qualified Code(s): D72.829 - Elevated white blood cell count, unspecified (5) Chronic pain of right lower extremity SNOMED Code(s): 17153479 ICD Code: M79.604 - PAIN IN RIGHT LEG; G89.29 - OTHER CHRONIC PAIN Status: Acute Current Visit: No (6) Peripheral neuropathy SNOMED Code(s): 684763165 ICD Code: G62.9 - POLYNEUROPATHY, UNSPECIFIED Status: Acute Current Visit : No Qualifiers: Peripheral neuropathy type: mononeuropathy, unspecified Qualified Code(s): G58.9 - Mononeuropathy, unspecified (7) Chronic pain SNOMED Code(s): 45441084 ICD Code: G89.29 - OTHER CHRONIC PAIN Status: Chronic Current Visit: No Qualifiers: Chronic pain type: due to trauma Qualified Code(s): G89.21 - Chronic pain due to trauma (8) HTN (hypertension) SNOMED Code(s): 10133919 ICD Code: I10 - ESSENTIAL (PRIMARY) HYPERTENSION Status: Chronic Priority : High Current Visit: Yes Qualifiers: Hypertension type: essential hypertension Qualified Code(s): I10 - Essential (primary) hypertension (9) Hx of deep venous thrombosis SNOMED Code(s): 504051805 ICD Code: Z86.718 - PERSONAL HISTORY OF OTHER VENOUS THROMBOSIS AND EMBOLISM Status: Chronic Priority: Medium Current Visit: Yes (10) Hx of fasciotomy SNOMED Code(s): 383741600 ICD Code: Z98.890 - OTHER SPECIFIED POSTPROCEDURAL STATES Status: Chronic Current Visit: No - Patient Instructions Diet: Regular Diet as Tolerated Activity: No Strenuous Activities Driving: Do Not Drive Showering/Bathing: May Shower Notify Provider of: Fever, Increased Pain, Swelling and Redness, Drainage, Nausea and/or Vomiting - Discharge Plan *PRESCRIPTION DRUG MONITORING PROGRAM REVIEWED*: Not Applicable *COPY OF PRESCRIPTION DRUG MONITORING REPORT IN PATIENT YOAN: Not Applicable Prescriptions/Med Rec: cefTRIAXone [Rocephin in Dextrose,Iso-Osm 2 GM/50 ML] 2 gm IV Q24H #12 bag hydroCHLOROthiazide [Hydrochlorothiazide] 25 mg PO DAILY #30 tab Home Medications: Home Meds Propranolol [Inderal LA] 60 mg PO DAILY 04/06/16 [History] Albuterol Sulfate [Proair Respiclick] 1 puff IH Q6H PRN 06/14/17 [History] Albuterol [Proventil] 2.5 mg INH Q6H PRN 06/14/17 [History] Ascorbic Acid [C-1000] 3,000 mg PO DAILY 06/14/17 [History] Cholecalciferol (Vitamin D3) [Vitamin D3] 1,000 unit PO DAILY 06/14/17 [History] Lutein/Minerals/Vit A,C & E [Ocuvite] 1 tab PO DAILY 06/14/17 [History] Pregabalin [Lyrica] 300 mg PO BID 06/14/17 [History] oxyCODONE HCl/Acetaminophen [Percocet 10-325 mg Tablet] 10 - 325 mg PO Q4H PRN 06/15/17 [History] Fluticasone/Vilanterol [Breo Ellipta 100-25 MCG Inhalation Kit] 1 inh INH DAILY 09/29/17 [History] Sertraline HCl 100 mg PO DAILY 09/16/18 [History] cefTRIAXone [Rocephin in Dextrose,Iso-Osm 2 GM/50 ML] 2 gm IV Q24H #12 bag 09/18 [Rx] hydroCHLOROthiazide [Hydrochlorothiazide] 25 mg PO DAILY #30 tab 09/18/18 [Rx] hydroCHLOROthiazide [Hydrochlorothiazide] 25 mg PO DAILY #30 tablet 09/18/18 [Rx ] Oxygen Therapy Mode: Room Air Referrals: [facility] [Outside] Reymundo Hardin MD [Ordering Only Provider] - 10/15/18 1:30 pm (Please call clinic to reschedule if you are unable to keep this appointment) Inocente Smart MD [Physician] - 09/20/18 1:00 pm - Discharge Summary/Plan Comment DC Time >30 min.: Yes (Discussion with Dr Smart regarding treatment plan, 35 minutes) Discharge Summary/Plan Comment: Admitting Diagnoses: Fever Leukocytosis Discharge Diagnoses: Group B Strep bacteremia RLE cellulitis Fractured IVC filter Other PMH Peripheral neuropathy s/p fasciotomy RLE HTN COPD Henrietta was admitted and treated with Rocephin for fever and leukocytosis. No UTI or pneumonia noted on exams. Abdominal CT obtained due to mild abdominal pain, this was negative for acute concerns. The following day, her R LE appeared red warm and tender. She explained she had been picking at a callous on the plantar surface of her R foot and gave herself a pedicure. Some bleeding was noted during her pedicure. Two days later she developed a fever. She was continued on Rocephin, BC returned 4/4 positive with group B strep. Rocephin 2 gm continued. Repeat BC obtained and have been negative x 2 days. PICC line placed yesterday for 14 day total course of IV Rocephin. I did speak with Dr Celaya, ID in [place], regarding bacteremia treatment and IVC filter. He agreed with Rocephin and that the likely source of infection was the cellulitis. Leukocytosis has resolved and she has been afebrile x 3 days. Doppler of RLE obtained, which was negative for DVT. On the abdominal CT it was noted the infrarenal IVC filter was fractured. One of the struts, the most anterior and outer, is seen extending slightly cephalad in relation to the other struts. It likely has not migrated any further yet, since a portion may be imbedded into the wall. No definite filter fragment within the heart. I spoke with Dr Nelson, Cardiovascular surgeon, at [facility] in [place]. He recommended treatment of bacteremia and then follow up with them as outpatient in their clinic regarding the IVC filter. This appointment was arranged beginning of October with Dr Hardin. During her stay, BPs were also elevated intermittently. She was continued on her Propranolol, but HCTZ 25 mg was also added. SHe is to monitor BP at home and follow up with Dr Smart regarding this as well. She will be discharged home today with Home Health. She is in need of skilled care to help with monitoring BP after new antihypertensive was initiated in the hospital. Help with monitoring cellulitis improvement to R LE as well. She would also benefit from PT evaluation and treatment due to deconditioning for acute illness and hospitalization. She is in need of assistance from continuum of care manager and cane to ambulate due to peripheral neuropathy secondary to RLE fasciotomy in 2010. She is homebound and does not drive. Dr Smart is PCP and he will follow up with Home Health plan of care. I spoke with Henrietta Brandt's daughter regarding discharge plan as well and all concerns and questions were addressed. She is to follow up as scheduled above. Encouraged to return to ED or clinic if concerns should arise. - General Info Date of Service: 09/18/18 Admission Dx/Problem (Free Text: Bacteremia, cellulitis Subjective Update: Doing well today, sitting up in chair. eager to go home. No other concerns. Breathing better today. Leg pain is stable at tolerable chronic level. NO chest pain. Functional Status: Reports: Pain Controlled, Tolerating Diet, Ambulating, Urinating - Review of Systems General: Reports: No Symptoms. Denies: Fever, Weakness, Fatigue HEENT: Reports: No Symptoms. Denies: Headaches, Sore Throat, Visual Changes Pulmonary: Reports: No Symptoms. Denies: Shortness of Breath, Cough, Sputum Cardiovascular: Reports: No Symptoms. Denies: Chest Pain, Edema Gastrointestinal: Reports: No Symptoms. Denies: Abdominal Pain, Nausea, Vomiting Genitourinary: Reports: No Symptoms. Denies: Dysuria, Frequency, Burning Musculoskeletal: Reports: Leg Pain (chronic and stable to RLE) Skin: Reports: Other (mild erythema, but much improved to RLE) Neurological: Reports: No Symptoms Psychiatric: Reports: No Symptoms - Patient Data Vitals - Most Recent: Last Vital Signs Temp 97.3 F 09/18/18 04:00 Pulse 55 L 09/18/18 04:00 Resp 16 09/18/18 04:00 BP 133/61 09/18/18 04:00 Pulse Ox 95 09/18/18 04:00 Weight - Most Recent: 81.647 kg I&O - Last 24 hours: Intake & Output 09/17/18 09/18/18 09/18/18 22:59 06:59 14:59 Intake Total 600 700 Output Total 1900 Balance 600 -1200 Lab Results - Last 24 hrs: Laboratory Results - last 24 hr 09/18/18 09/18/18 Range/Units 05:00 05:00 WBC 4.49 (4.0-11.0) K/uL RBC 4.14 L (4.30-5.90) M/uL Hgb 11.3 L (12.0-16.0) g/dL Hct 35.7 L (36.0-46.0) % MCV 86.2 (80.0-98.0) fL MCH 27.3 (27.0-32.0) pg MCHC 31.7 (31.0-37.0) g/dL RDW Std Deviation 43.9 (28.0-62.0) fl RDW Coeff of Hansel 14 (11.0-15.0) % Plt Count 121 L (150-400) K/uL MPV 10.70 (7.40-12.00) fL Neut % (Auto) 39.4 L (48.0-80.0) % Lymph % (Auto) 48.1 H (16.0-40.0) % Grayson % (Auto) 7.6 (0.0-15.0) % Eos % (Auto) 4.2 (0.0-7.0) % Baso % (Auto) 0.7 (0.0-1.5) % Neut # (Auto) 1.8 (1.4-5.7) K/uL Lymph # (Auto) 2.2 (0.6-2.4) K/uL Grayson # (Auto) 0.3 (0.0-0.8) K/uL Eos # (Auto) 0.2 (0.0-0.7) K/uL Baso # (Auto) 0.0 (0.0-0.1) K/uL Nucleated RBC % 0.0 /100WBC Nucleated RBCs # 0 K/uL Sodium 140 (136-145) mmol/L Potassium 4.1 (3.5-5.1) mmol/L Chloride 102 (98-107) mmol/L Carbon Dioxide 34.1 H (21.0-32.0) mmol/L BUN 17 (7.0-18.0) mg/dL Creatinine 0.9 (0.6-1.0) mg/dL Est Cr Clr Drug Dosing 44.25 mL/min Estimated GFR (MDRD) > 60.0 ml/min Glucose 99 (74-106) mg/dL Calcium 8.9 (8.5-10.1) mg/dL NAZ Results - Last 24 hrs: Microbiology 09/16/18 08:37 Aerobic Blood Culture - Preliminary Blood - Venous - Lab Draw NO GROWTH AFTER 2 DAYS Anaerobic Blood Culture - Preliminary NO GROWTH AFTER 2 DAYS 09/16/18 08:27 Aerobic Blood Culture - Preliminary Blood - Venous NO GROWTH AFTER 2 DAYS Anaerobic Blood Culture - Preliminary NO GROWTH AFTER 2 DAYS Med Orders - Current: Current Medications Acetaminophen (Tylenol) 650 mg PO Q4H PRN PRN Reason: Fever Last Admin: 09/16/18 20:47 Dose: 650 mg Albuterol (Proventil Neb Soln) 2.5 mg INH Q6HRRT PRN PRN Reason: Wheezing Last Admin: 09/17/18 00:17 Dose: 2.5 mg Albuterol (Ventolin Hfa) 1 gm INH Q6HRRT PRN PRN Reason: Shortness of Breath Albuterol/Ipratropium (Duoneb 3.0-0.5 Mg/3 Ml) 3 ml NEB Q4HRRT PRN PRN Reason: Shortness Of Breath/wheezing Docusate Sodium (Colace) 100 mg PO BID PRN PRN Reason: Constipation Last Admin: 09/17/18 20:13 Dose: 100 mg Enoxaparin Sodium (Lovenox) 40 mg SUBCUT Q24H [facility] Last Admin: 09/17/18 10:51 Dose: 40 mg Hydrochlorothiazide (Hydrochlorothiazide) 25 mg PO DAILY [facility] Last Admin: 09/17/18 08:11 Dose: 25 mg Ceftriaxone Sodium/Dextrose 2 (gm/ Premix) 50 mls @ 100 mls/hr IV Q24H [facility] Last Admin: 09/18/18 06:31 Dose: 100 mls/hr Ondansetron HCl (Zofran) 4 mg IVPUSH Q4H PRN PRN Reason: Nausea Last Admin: 09/13/18 16:03 Dose: 4 mg Oxycodone/Acetaminophen (Percocet 325-10 Mg) 1 tab PO Q4H PRN PRN Reason: Pain Last Admin: 09/18/18 05:18 Dose: 1 tab Fluticasone/ (Vilanterol 1 Inh) 1 each INH DAILY [facility] Last Admin: 09/17/18 08:12 Dose: 1 each Pregabalin (Lyrica) 300 mg PO BID [facility] Last Admin: 09/17/18 20:13 Dose: 300 mg Propranolol HCl (Inderal La) 60 mg PO DAILY [facility] Last Admin: 09/17/18 08:11 Dose: 60 mg Sertraline HCl (Zoloft) 100 mg PO DAILY [facility] Last Admin: 09/17/18 08:11 Dose: 100 mg Discontinued Medications Acetaminophen (Tylenol Extra Strength) 1,000 mg PO ONETIME ONE Stop: 09/13/18 11:28 Last Admin: 09/13/18 11:41 Dose: 1,000 mg Albuterol/Ipratropium (Duoneb 3.0-0.5 Mg/3 Ml) 3 ml NEB ONETIME ONE Stop: 09/13/18 11:58 Last Admin: 09/13/18 12:06 Dose: 3 ml Clonidine HCl (Catapres) 0.1 mg PO ONETIME ONE Stop: 09/17/18 00:06 Last Admin: 09/17/18 00:14 Dose: 0.1 mg Enoxaparin Sodium (Lovenox) 40 mg SUBCUT Q24H [facility] Last Admin: 09/14/18 11:15 Dose: 40 mg Heparin Sodium (Porcine) (Heparin Sodium) 5,000 units SUBCUT Q8H [facility] Sodium Chloride (Normal Saline) 1,000 mls @ 999 mls/hr IV STAT ONE Stop: 09/13/18 12:28 Last Admin: 09/13/18 11:46 Dose: 999 mls/hr Ceftriaxone Sodium/Dextrose 1 (gm/ Premix) 50 mls @ 100 mls/hr IV ONETIME ONE Stop: 09/13/18 13:34 Last Admin: 09/13/18 13:28 Dose: 100 mls/hr Sodium Chloride (Normal Saline) 1,000 mls @ 100 mls/hr IV ASDIRECTED [facility] Last Admin: 09/16/18 05:20 Dose: 100 mls/hr Ceftriaxone Sodium/Dextrose 1 (gm/ Premix) 50 mls @ 100 mls/hr IV Q24H [facility] Meropenem 1 gm/ Sodium (Chloride) 100 mls @ 200 mls/hr IV Q8H [facility] Stop: 09/14/18 09:00 Last Admin: 09/14/18 07:43 Dose: 200 mls/hr Sodium Chloride (Normal Saline) Confirm Administered Dose 100 mls @ as directed .ROUTE .STK-MED ONE Stop: 09/14/18 07:33 Last Admin: 09/14/18 08:00 Dose: Not Given Meropenem 1 gm/ Sodium (Chloride) 100 mls @ 200 mls/hr IV Q8H [facility] Meropenem 1 gm/ Sodium (Chloride) 100 mls @ 200 mls/hr IV Q12H [facility] Last Admin: 09/14/18 19:36 Dose: 200 mls/hr Meropenem (Merrem) Confirm Administered Dose 1 gm .ROUTE .STK-MED ONE Stop: 09/14/18 07:31 Last Admin: 09/14/18 08:00 Dose: Not Given - Exam General: Reports: Alert, Oriented, Cooperative, No Acute Distress Lungs: Reports: Clear to Auscultation, Normal Respiratory Effort Cardiovascular: Reports: Regular Rate, Regular Rhythm GI/Abdominal Exam: Normal Bowel Sounds, Soft, Non-Tender, No Distention, No Mass Extremities: Normal Inspection, Normal Range of Motion, Non-Tender, No Pedal Edema Wound/Incisions: Reports: Erythema Improving (very scant erythema continues to RLE, much improved, very little increased warmth. ) Neurological: Reports: No New Focal Deficit Psy/Mental Status: Reports: Alert, Normal Affect, Normal Mood
[2018-09-18 08:55] VITALS: BP 135/62
[2018-09-18] MEDS: Hydrochlorothiazide 25 MG Tab PO SCH (08:57)
[2018-09-18] MEDS: Sertraline 100 MG Tab PO SCH (08:57)
[2018-09-18] MEDS: Pregabalin 75 MG Cap PO SCH (08:57)
[2018-09-18] MEDS: Propranolol 60 MG Cap.ER PO SCH (08:59)
== END 2018-09-18 11:30 | disposition home health service (06) | DRG 603 ==
LOC: MW.ED 11:08 → MW.MS 13:43 → OBSVTOIN 09-16 10:13 → MW.MS 09-16 11:39
PROVIDERS: ADMIT Internal Medicine; ATTEND Internal Medicine
PROC: 02HV33Z Insertion of Infusion Device into Superior Vena Cava, Percutaneous Approach (ICD-10-PCS; principal; 2018-09-17)
PROC: B518ZZA Fluoroscopy of Superior Vena Cava, Guidance (ICD-10-PCS; 2018-09-17)
PROC: B548ZZA Ultrasonography of Superior Vena Cava, Guidance (ICD-10-PCS; 2018-09-17)
DX: R50.9 Fever, unspecified (principal); D72.829 Elevated white blood cell count, unspecified; L03.115 Cellulitis of right lower limb; R78.81 Bacteremia; T82.515A Breakdown (mechanical) of umbrella device, initial encounter; B95.1 Streptococcus, group B, as the cause of diseases classified elsewhere; I10 Essential (primary) hypertension; R41.0 Disorientation, unspecified; J44.9 Chronic obstructive pulmonary disease, unspecified; M79.604 Pain in right leg; G89.21 Chronic pain due to trauma; Z87.891 Personal history of nicotine dependence; R10.9 Unspecified abdominal pain; Z95.828 Presence of other vascular implants and grafts; Z86.718 Personal history of other venous thrombosis and embolism; Z87.440 Personal history of urinary (tract) infections; Z87.01 Personal history of pneumonia (recurrent); H91.90 Unspecified hearing loss, unspecified ear; F32.9 Major depressive disorder, single episode, unspecified; G58.9 Mononeuropathy, unspecified; Z98.890 Other specified postprocedural states; Z88.5 Allergy status to narcotic agent; Z88.8 Allergy status to other drugs, medicaments and biological substances; Z87.828 Personal history of other (healed) physical injury and trauma; L84 Corns and callosities
CPT/HCPCS: 36415 ×4; 70450; 71045; 74150; 80048 ×3; 80053; 81001; 82375; 83605; 85025 ×4; 87040 ×4; 87077; 87086; 87186; 87804 ×2; 93005; 94640; 96361; 96365; 99285; A9270 ×26; J0696 ×3; J1650; J2185 ×2; J2405; J7030 ×2; J7040 ×8; 36569; 71046; 71046-26; 76937; 76937-26; 77001; 77001-26; 93971-26-RT; 93971-RT; 96366; 96367; 96372; 96375; 96376; G0378; J7620-GY

== ENCOUNTER 2021-02-05 03:46 | Emergency (ER) | payer MEDICARE, BC ==
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
[2021-02-05 04:55] LABS: BLOOD UREA NITROGEN,BUN 31 mg/dL (7.0-18.0); CARBON DIOXIDE,CO2 29.7 mmol/L (21.0-32.0); CHLORIDE,CL 102 mmol/L (98-107); GLUCOSE RANDOM 115 mg/dL (74-106); POTASSIUM,K 4.1 mmol/L (3.5-5.1); SODIUM,NA 137 mmol/L (136-145)
[2021-02-05 05:43] VITALS: BP 138/76; PULSE 85
== END 2021-02-05 05:59 | disposition home or self-care (01) ==
LOC: MW.ED 03:46
DX: M79.652 Pain in left thigh (principal); J44.9 Chronic obstructive pulmonary disease, unspecified; I10 Essential (primary) hypertension; E66.9 Obesity, unspecified; Z68.30 Body mass index [BMI] 30.0-30.9, adult; Z86.718 Personal history of other venous thrombosis and embolism; Z88.8 Allergy status to other drugs, medicaments and biological substances
CPT/HCPCS: 36415; 80053; 81001; 85025; 99283

== ENCOUNTER 2021-02-28 06:53 | Emergency (ER) | payer MEDICARE, BC ==
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
[2021-02-28] MEDS ORDERED: Oxymetazoline 0.05% Nasal Spray 15 ML Bottle NAS ONE (07:06)
[2021-02-28] MEDS ORDERED: Lidocaine 1% with EPINEPHrine 1:100,000 20 ML MDV INJECT ONE (07:56)
[2021-02-28 12:45] VITALS: BP 145/55; PULSE 82
== END 2021-02-28 09:33 | disposition home or self-care (01) ==
LOC: MW.ED 06:53
DX: R04.0 Epistaxis (principal); I10 Essential (primary) hypertension; J44.9 Chronic obstructive pulmonary disease, unspecified; E66.9 Obesity, unspecified; Z79.82 Long term (current) use of aspirin; Z88.8 Allergy status to other drugs, medicaments and biological substances; Z68.35 Body mass index [BMI] 35.0-35.9, adult
CPT/HCPCS: 30903; 99283-25

== ENCOUNTER 2023-07-10 16:21 | Emergency (ER) | payer MEDICARE, BC ==
[2023-07-10] MEDS: Diphtheria,Pertussis(Acell),Tetanus Vaccine 0.5 ML Syringe IM ONE (17:41)
[2023-07-10] MEDS: Lidocaine 1% 5 ML VIAL INJECT ONE (17:41)
[2023-07-10 18:28] VITALS: BP 171/74; PULSE 70
== END 2023-07-10 18:25 | disposition home or self-care (01) ==
LOC: MW.ED 16:21
DX: S61.213A Laceration without foreign body of left middle finger without damage to nail, initial encounter (principal); Z23 Encounter for immunization; I10 Essential (primary) hypertension; J44.9 Chronic obstructive pulmonary disease, unspecified; Z79.899 Other long term (current) drug therapy; W26.8XXA Contact with other sharp object(s), not elsewhere classified, initial encounter
CPT/HCPCS: 12001; 90471; 90715; 99282-25; 99283; J3490

== ENCOUNTER 2024-02-15 18:31 | Inpatient (IN) | payer MEDICARE, BC ==
[2024-02-15] MEDS: Sodium Chloride 0.9% 1,000 ML IV ONE (18:55)
[2024-02-15] MEDS: Acetaminophen 500 MG Tab PO ONE ×2 (18:56→21:38)
[2024-02-15 18:59] LABS: BASOPHILS ABSOLUTE AUTO 0.04 K/uL (0.00-0.20); BASOPHILS PERCENT AUTO 0.3 % (0.0-1.0); EOSINOPHILS ABSOLUTE AUTO 0.02 K/uL (0.00-0.45); EOSINOPHILS PERCENT AUTO 0.2 % (0.0-6.0); HEMATOCRIT 43.1 % (37.0-47.0); HEMOGLOBIN 14.6 g/dL (12.0-16.0); IMMATURE GRAN ABSOLUTE AUTO 0.08 K/uL (0.00-0.05); IMMATURE GRAN PERCENT AUTO 0.7 % (0.0-0.4); LYMPHOCYTES ABSOLUTE AUTO 1.36 K/uL (1.00-4.80); LYMPHOCYTES PERCENT AUTO 11.4 % (24.0-44.0); MEAN CORPUSCULAR HEMOGLOBIN 28.7 pg (28.0-32.0); MEAN CORPUSCULAR HGB CONC 33.9 g/dL (32.0-36.0); MEAN CORPUSCULAR VOLUME 84.7 fL (83.0-99.0); MEAN PLATELET VOLUME 10.4 fL (9.4-12.3); MONOCYTES ABSOLUTE AUTO 0.77 K/uL (0.00-0.80); MONOCYTES PERCENT AUTO 6.5 % (0.0-8.0); NEUTROPHILS ABSOLUTE AUTO 9.65 K/uL (1.80-7.70); NEUTROPHILS PERCENT AUTO 80.9 % (41.0-71.0); PLATELET COUNT,PLT 152 K/uL (150-400); RED BLOOD CELL COUNT 5.09 M/uL (4.10-5.30); WHITE BLOOD CELL COUNT,WBC 11.92 K/uL (3.9-11.3)
[2024-02-15 19:32] LABS: A/G RATIO 0.9 (0.9-1.6); ALANINE AMINOTRANSFERASE,ALT 22 IU/L (14-63); ALBUMIN 3.7 g/dL (3.4-5.0); ALKALINE PHOSPHATASE 91 U/L (46-116); ASPARTATE AMNIOTRANSFERASE,AST 20 IU/L (15-37); BILIRUBIN TOTAL 0.5 mg/dL (0.2-1.0); BLOOD UREA NITROGEN,BUN 29 mg/dL (7.0-18.0); CALCIUM 9.1 mg/dL (8.5-10.1); CARBON DIOXIDE,CO2 32.2 mmol/L (21.0-32.0); CHLORIDE,CL 97 mmol/L (98-107); CREATININE 1.2 mg/dL (0.6-1.0); GLUCOSE RANDOM 187 mg/dL (74-106); LIPASE 15 U/L (16-77); MAGNESIUM 1.7 mg/dL (1.8-2.4); POTASSIUM,K 4.4 mmol/L (3.5-5.1); PROTEIN TOTAL,TP 7.8 g/dL (6.4-8.2); SODIUM,NA 133 mmol/L (136-145)
[2024-02-15] MEDS: Ibuprofen 600 MG Tab PO ONE (19:36)
[2024-02-15 19:37] LABS: ESTIMATED GFR 45 mL/min (>60)
[2024-02-15 20:08] LABS: LACTIC ACID 1.1 mmol/L (0.4-2.0)
[2024-02-15] MEDS: Iopamidol 755 MG/ML 500 ML Multipack Bottle IVPUSH ONE (20:14)
[2024-02-15] MEDS: cefTRIAXone 2 GM in Sodium Chloride 0.9% 50 ML IV ONE (21:04)
[2024-02-15] MEDS: cefTRIAXone 1 GM in Sodium Chloride 0.9% 50 ML IV ONE (21:05)
[2024-02-15 21:34] LABS: BILIRUBIN,URINE NEGATIVE (NEGATIVE); COLOR,URINE YELLOW; GLUCOSE,URINE NEGATIVE (NEGATIVE); KETONES,URINE NEGATIVE (NEGATIVE); LEUKOCYTE ESTERASE,URINE NEGATIVE (NEGATIVE); NITRITE,URINE NEGATIVE (NEGATIVE); OCCULT BLOOD,URINE TRACE-INTACT (NEGATIVE); PROTEIN,URINE 30 mg/dL (NEGATIVE)
[2024-02-15] MEDS: Azithromycin 500 MG in Sodium Chloride 0.9% 250 ML IV ONE (21:38)
[2024-02-15 21:44] LABS: APPEARANCE,URINE HAZY
[2024-02-15 21:47] LABS: RBC,URINE 0-5 (0-2/HPF); WBC,URINE 0-3 (0-5/HPF)
[2024-02-15 21:48] LABS: BACTERIA,URINE FEW (NEGATIVE); EPITHELIAL CELLS,URINE OCCASIONAL (NONE-FEW)
[2024-02-15] MEDS: Lidocaine 4% 1 each Patch TOP PRN (22:19)
[2024-02-15] MEDS: oxyCODONE 5 MG Tab PO ONE (22:19)
[2024-02-16] MEDS ORDERED: PREGABALIN 300 MG PO PRN (04:36)
[2024-02-16] MEDS ORDERED: Nortriptyline 10 MG Cap PO PRN (04:36)
[2024-02-16] MEDS: oxyCODONE 5 MG Tab PO PRN (05:06)
[2024-02-16 06:00] LABS: BASOPHILS ABSOLUTE AUTO 0.05 K/uL (0.00-0.20); BASOPHILS PERCENT AUTO 0.3 % (0.0-1.0); EOSINOPHILS ABSOLUTE AUTO 0.02 K/uL (0.00-0.45); EOSINOPHILS PERCENT AUTO 0.1 % (0.0-6.0); HEMATOCRIT 43.6 % (37.0-47.0); IMMATURE GRAN PERCENT AUTO 0.6 % (0.0-0.4); LYMPHOCYTES ABSOLUTE AUTO 1.25 K/uL (1.00-4.80); LYMPHOCYTES PERCENT AUTO 7.5 % (24.0-44.0); MEAN CORPUSCULAR HEMOGLOBIN 27.9 pg (28.0-32.0); MEAN CORPUSCULAR HGB CONC 32.1 g/dL (32.0-36.0); MEAN CORPUSCULAR VOLUME 86.9 fL (83.0-99.0); MEAN PLATELET VOLUME 10.4 fL (9.4-12.3); MONOCYTES ABSOLUTE AUTO 0.83 K/uL (0.00-0.80); NEUTROPHILS ABSOLUTE AUTO 14.45 K/uL (1.80-7.70); NEUTROPHILS PERCENT AUTO 86.5 % (41.0-71.0); PLATELET COUNT,PLT 148 K/uL (150-400); RED BLOOD CELL COUNT 5.02 M/uL (4.10-5.30)
[2024-02-16 06:24] LABS: A/G RATIO 0.8 (0.9-1.6); ALANINE AMINOTRANSFERASE,ALT 22 IU/L (14-63); ALBUMIN 3.2 g/dL (3.4-5.0); ALKALINE PHOSPHATASE 86 U/L (46-116); ASPARTATE AMNIOTRANSFERASE,AST 11 IU/L (15-37); BILIRUBIN TOTAL 0.5 mg/dL (0.2-1.0); BLOOD UREA NITROGEN,BUN 23 mg/dL (7.0-18.0); CHLORIDE,CL 98 mmol/L (98-107); CREATININE 1.1 mg/dL (0.6-1.0); GLUCOSE RANDOM 166 mg/dL (74-106); MAGNESIUM 1.9 mg/dL (1.8-2.4); POTASSIUM,K 4.1 mmol/L (3.5-5.1); PROTEIN TOTAL,TP 7.4 g/dL (6.4-8.2); SODIUM,NA 137 mmol/L (136-145)
[2024-02-16 06:37] LABS: ESTIMATED GFR 50 mL/min (>60)
[2024-02-16] MEDS: Pregabalin 75 MG Cap PO SCH (07:17)
[2024-02-16] MEDS: Albuterol/Ipratropium 3.0-0.5 MG/3 ML Neb Soln NEB PRN (07:17)
[2024-02-16] MEDS ORDERED: Glucagon,Human Recombinant 1 MG Vial IM PRN (08:09)
[2024-02-16] MEDS ORDERED: 50% Dextrose in Water 50 ML Syringe IVPUSH PRN (08:09)
[2024-02-16] MEDS: cefTRIAXone 2 GM in Sodium Chloride 0.9% 50 ML IV SCH (08:43)
[2024-02-16] MEDS: Azithromycin 500 MG in Sodium Chloride 0.9% 250 ML IV ONE (08:43)
[2024-02-16] MEDS: Nortriptyline 10 MG Cap PO SCH (08:44)
[2024-02-16] MEDS: Insulin Aspart 100 Units/ML 3 ML Pen SUBCUT SCH (08:57)
[2024-02-16] MEDS: Levothyroxine 50 MCG Tab PO SCH (11:42)
[2024-02-16] MEDS: Piperacillin/Tazobactam 4.5 GM in Sodium Chloride 0.9% 100 ML IV ONE (11:53)
[2024-02-16] MEDS: VANCOmycin 1.75 GM/350 ML 1.75 GM in Premix Bag 1 BAG IV ONE (11:53)
[2024-02-16] MEDS: Acetaminophen 325 MG Tab PO PRN (15:05)
[2024-02-16] MEDS: Enoxaparin 40 MG/0.4 ML Syringe SUBCUT SCH (19:37)
[2024-02-16] MEDS: Piperacillin/Tazobactam 4.5 GM in Sodium Chloride 0.9% 100 ML IV SCH (19:38)
[2024-02-16] MEDS: Rosuvastatin 10 MG Tab PO SCH (21:11)
[2024-02-16] MEDS: QUEtiapine 25 MG Tab PO SCH (21:11)
[2024-02-17 06:18] LABS: BASOPHILS ABSOLUTE AUTO 0.02 K/uL (0.00-0.20); BASOPHILS PERCENT AUTO 0.2 % (0.0-1.0); EOSINOPHILS ABSOLUTE AUTO 0.05 K/uL (0.00-0.45); EOSINOPHILS PERCENT AUTO 0.4 % (0.0-6.0); HEMATOCRIT 35.6 % (37.0-47.0); HEMOGLOBIN 11.7 g/dL (12.0-16.0); IMMATURE GRAN ABSOLUTE AUTO 0.03 K/uL (0.00-0.05); IMMATURE GRAN PERCENT AUTO 0.2 % (0.0-0.4); LYMPHOCYTES PERCENT AUTO 9.3 % (24.0-44.0); MEAN CORPUSCULAR HEMOGLOBIN 28.1 pg (28.0-32.0); MEAN CORPUSCULAR HGB CONC 32.9 g/dL (32.0-36.0); MEAN CORPUSCULAR VOLUME 85.6 fL (83.0-99.0); MEAN PLATELET VOLUME 10.9 fL (9.4-12.3); MONOCYTES ABSOLUTE AUTO 0.73 K/uL (0.00-0.80); MONOCYTES PERCENT AUTO 5.7 % (0.0-8.0); NEUTROPHILS ABSOLUTE AUTO 10.82 K/uL (1.80-7.70); NEUTROPHILS PERCENT AUTO 84.2 % (41.0-71.0); PLATELET COUNT,PLT 127 K/uL (150-400); RED BLOOD CELL COUNT 4.16 M/uL (4.10-5.30); WHITE BLOOD CELL COUNT,WBC 12.85 K/uL (3.9-11.3)
[2024-02-17 06:46] LABS: A/G RATIO 0.6 (0.9-1.6); ALBUMIN 2.7 g/dL (3.4-5.0); BILIRUBIN TOTAL 0.4 mg/dL (0.2-1.0); CALCIUM 9.1 mg/dL (8.5-10.1); CARBON DIOXIDE,CO2 28.5 mmol/L (21.0-32.0); CREATININE 0.9 mg/dL (0.6-1.0); EST CRCL DRUG DOSING (CG) 34.02 mL/min; POTASSIUM,K 4.2 mmol/L (3.5-5.1); PROTEIN TOTAL,TP 6.9 g/dL (6.4-8.2)
[2024-02-17] MEDS: Azithromycin 500 MG in Sodium Chloride 0.9% 250 ML IV SCH (08:50)
[2024-02-17] MEDS ORDERED: cefTRIAXone 1 GM in Sodium Chloride 0.9% 50 ML IV SCH (09:45)
[2024-02-17] MEDS: Sodium Chloride 0.9% 1,000 ML IV SCH (10:13)
[2024-02-18 06:54] LABS: BASOPHILS ABSOLUTE AUTO 0.02 K/uL (0.00-0.20); BASOPHILS PERCENT AUTO 0.2 % (0.0-1.0); EOSINOPHILS ABSOLUTE AUTO 0.14 K/uL (0.00-0.45); EOSINOPHILS PERCENT AUTO 1.5 % (0.0-6.0); HEMOGLOBIN 11.6 g/dL (12.0-16.0); IMMATURE GRAN ABSOLUTE AUTO 0.07 K/uL (0.00-0.05); IMMATURE GRAN PERCENT AUTO 0.7 % (0.0-0.4); LYMPHOCYTES ABSOLUTE AUTO 1.46 K/uL (1.00-4.80); LYMPHOCYTES PERCENT AUTO 15.3 % (24.0-44.0); MEAN CORPUSCULAR HEMOGLOBIN 27.7 pg (28.0-32.0); MEAN CORPUSCULAR HGB CONC 32.2 g/dL (32.0-36.0); MEAN CORPUSCULAR VOLUME 85.9 fL (83.0-99.0); MEAN PLATELET VOLUME 11.5 fL (9.4-12.3); MONOCYTES PERCENT AUTO 7.3 % (0.0-8.0); NEUTROPHILS ABSOLUTE AUTO 7.17 K/uL (1.80-7.70); PLATELET COUNT,PLT 151 K/uL (150-400); RED BLOOD CELL COUNT 4.19 M/uL (4.10-5.30); WHITE BLOOD CELL COUNT,WBC 9.56 K/uL (3.9-11.3)
[2024-02-18 07:23] LABS: A/G RATIO 0.6 (0.9-1.6); ALBUMIN 2.7 g/dL (3.4-5.0); BILIRUBIN TOTAL 0.6 mg/dL (0.2-1.0); CALCIUM 9.2 mg/dL (8.5-10.1); CARBON DIOXIDE,CO2 27.4 mmol/L (21.0-32.0); CREATININE 0.8 mg/dL (0.6-1.0); EST CRCL DRUG DOSING (CG) 38.27 mL/min; PROTEIN TOTAL,TP 7.1 g/dL (6.4-8.2)
[2024-02-18] MEDS: VANCOmycin 1.5 GM/300 ML 1.5 GM in Premix Bag 1 BAG IV SCH (10:58)
[2024-02-18 19:06] VITALS: PULSE 72
[2024-02-19 06:08] LABS: BASOPHILS ABSOLUTE AUTO 0.03 K/uL (0.00-0.20); BASOPHILS PERCENT AUTO 0.4 % (0.0-1.0); EOSINOPHILS ABSOLUTE AUTO 0.17 K/uL (0.00-0.45); HEMATOCRIT 35.3 % (37.0-47.0); HEMOGLOBIN 11.6 g/dL (12.0-16.0); IMMATURE GRAN ABSOLUTE AUTO 0.05 K/uL (0.00-0.05); IMMATURE GRAN PERCENT AUTO 0.6 % (0.0-0.4); LYMPHOCYTES ABSOLUTE AUTO 2.24 K/uL (1.00-4.80); LYMPHOCYTES PERCENT AUTO 26.8 % (24.0-44.0); MEAN CORPUSCULAR HGB CONC 32.9 g/dL (32.0-36.0); MEAN CORPUSCULAR VOLUME 85.1 fL (83.0-99.0); MEAN PLATELET VOLUME 10.7 fL (9.4-12.3); MONOCYTES ABSOLUTE AUTO 0.66 K/uL (0.00-0.80); MONOCYTES PERCENT AUTO 7.9 % (0.0-8.0); NEUTROPHILS ABSOLUTE AUTO 5.21 K/uL (1.80-7.70); NEUTROPHILS PERCENT AUTO 62.3 % (41.0-71.0); PLATELET COUNT,PLT 163 K/uL (150-400); RED BLOOD CELL COUNT 4.15 M/uL (4.10-5.30); WHITE BLOOD CELL COUNT,WBC 8.36 K/uL (3.9-11.3)
[2024-02-19 06:43] LABS: A/G RATIO 0.6 (0.9-1.6); ALBUMIN 2.6 g/dL (3.4-5.0); BILIRUBIN TOTAL 0.6 mg/dL (0.2-1.0); CALCIUM 9.5 mg/dL (8.5-10.1); CREATININE 0.8 mg/dL (0.6-1.0); EST CRCL DRUG DOSING (CG) 38.27 mL/min; POTASSIUM,K 3.9 mmol/L (3.5-5.1)
[2024-02-19] MEDS: cefTRIAXone 2 GM in Sodium Chloride 0.9% 50 ML IV SCH (12:31)
[2024-02-19 15:30] VITALS: BP 158/69
== END 2024-02-19 12:35 | DRG 193 ==
LOC: MW.ED 18:31 → MW.MS 21:44
PROVIDERS: ADMIT Family Medicine; ATTEND Family Medicine
DX: J18.9 Pneumonia, unspecified organism (principal); J96.01 Acute respiratory failure with hypoxia; J44.9 Chronic obstructive pulmonary disease, unspecified; J44.0 Chronic obstructive pulmonary disease with (acute) lower respiratory infection; Z68.41 Body mass index [BMI] 40.0-44.9, adult; Z79.891 Long term (current) use of opiate analgesic; E87.1 Hypo-osmolality and hyponatremia; R78.81 Bacteremia; Z66 Do not resuscitate; E87.8 Other disorders of electrolyte and fluid balance, not elsewhere classified; E11.9 Type 2 diabetes mellitus without complications; I10 Essential (primary) hypertension; E03.9 Hypothyroidism, unspecified; G62.9 Polyneuropathy, unspecified; G89.29 Other chronic pain; K59.09 Other constipation; E66.9 Obesity, unspecified; H91.90 Unspecified hearing loss, unspecified ear; E87.6 Hypokalemia; F32.A Depression, unspecified; I27.20 Pulmonary hypertension, unspecified; Z79.84 Long term (current) use of oral hypoglycemic drugs; Z79.52 Long term (current) use of systemic steroids; Z79.890 Hormone replacement therapy; Z79.899 Other long term (current) drug therapy; Z86.16 Personal history of COVID-19; Z90.710 Acquired absence of both cervix and uterus; Z96.641 Presence of right artificial hip joint
CPT/HCPCS: 36415; 71045; 71275; 80053; 81001; 83605; 83690; 83735; 84484; 85025; 87040 ×2; 87077; 87186; 93005; 96361; 96365; 96375; 99285; A9270 ×3; J0456; J0696; J3490; J7030; J7050; Q9967; 80202; 82947; 87154; 93010; 93306; 97163-GP; J1650; J1815-GY; J2543; J3370; J3372; J7620-GY

== ENCOUNTER 2024-03-17 16:55 | Emergency (ER) | payer MEDICARE, BC ==
[2024-03-17 18:37] VITALS: BP 165/85; PULSE 73
== END 2024-03-17 20:30 | disposition home or self-care (01) ==
LOC: MW.ED 16:55
DX: Z45.2 Encounter for adjustment and management of vascular access device (principal); I10 Essential (primary) hypertension; J44.9 Chronic obstructive pulmonary disease, unspecified; E66.9 Obesity, unspecified; Z86.16 Personal history of COVID-19; Z90.710 Acquired absence of both cervix and uterus; Z87.891 Personal history of nicotine dependence; Z79.899 Other long term (current) drug therapy; Z79.890 Hormone replacement therapy; Z79.84 Long term (current) use of oral hypoglycemic drugs; Z75.8 Other problems related to medical facilities and other health care; Z68.41 Body mass index [BMI] 40.0-44.9, adult
CPT/HCPCS: 99283